=== PATIENT | male | born 1955 | race Caucasian/White ===

== ENCOUNTER 2017-09-27 08:32 | Day surgery (SDC) | payer BC, SELFPAY | END 2017-09-27 10:55 | disposition home or self-care (01) | PROVIDERS: Family Provider Internal Medicine Adolescent Medicine; Visit Provider Internal Medicine Gastroenterology | DX: Z12.11 Encounter for screening for malignant neoplasm of colon (principal); K62.1 Rectal polyp; K64.0 First degree hemorrhoids; Z86.010 Personal history of colon polyps | CPT/HCPCS: 45385; 99152 ==

== ENCOUNTER → 2018-06-04 15:28 | Outpatient (CLI) | payer BC, SELFPAY ==
--- NOTE | 2018-06-04 15:36 | XR_ITS ---
XR chest 2V HISTORY: ITS.REASON: COUGH ORDERING PHYSICIAN: Nicky Sharpe PATIENT AGE: 63 years COMPARISON: None FINDINGS: The cardiomediastinal silhouette and pulmonary vascularity are within normal limits. There is some eventration of the anterior medial aspect of the right hemidiaphragm. Patchy density is present in the right middle lobe suspicious for an area of pneumonia. The left lung is clear. Mild degenerative change thoracic spine. IMPRESSION: Patchy area of pneumonia in the right middle lobe
== END ==
PROVIDERS: PCP Internal Medicine Adolescent Medicine; Visit Provider Nurse Practitioner Family
DX: R05 Cough (principal)
CPT/HCPCS: 71046

== ENCOUNTER → 2018-06-10 14:33 | Outpatient (CLI) | payer BC, SELFPAY ==
[2018-06-10 14:51] LABS: Basophils % 0.5 % (0.1-2.0); Eosinophils # 0.5 K/mm3 (0.0-0.4); Hematocrit 43.6 % (42.0-52.0); Hemoglobin 14.6 g/dL (14.1-18.0); Lymphocytes # 1.1 K/mm3 (0.7-4.5); Lymphocytes % 12.7 K/mm3 (10-50); Mean Corpuscular HGB Conc 33.6 g/dL (31.8-35.4); Mean Corpuscular Hemoglobin 30.9 pg (27.0-31.2); Mean Platelet Volume 6.8 fl (7.4-10.4); Monocytes # 0.6 K/mm3 (0.1-1.0); Monocytes % 6.4 % (1.7-9.3); Neutrophils # 6.4 K/mm3 (1.8-7.8); Neutrophils % 74.5 % (37.0-80.0); Platelet Count 253 K/mm3 (142-424); Red Blood Count 4.73 M/mm3 (4.60-6.20); Red Cell Distribution Width 13.6 % (11.5-17.5); White Blood Count 8.6 K/mm3 (4.8-10.8)
[2018-06-10 16:21] LABS: Anion Gap 13.1 mEq/L (5-15); Blood Urea Nitrogen 13 mg/dL (7-18); Calcium 8.5 mg/dL (8.5-10.1); Carbon Dioxide 29 mmol/L (21.0-32.0); Chloride 107 mmol/L (98-107); Creatinine,Serum 1.14 mg/dL (0.70-1.30); Estimated Glomerular Filt Rate 65 ml/min (>60); GFR (African American) 78 ML/MIN (>60); Glucose 101 mg/dL (74-106); Potassium 4.1 mmoL/L (3.5-5.1); Sodium 145 mmol/L (136-145)
== END ==
PROVIDERS: Family Provider Internal Medicine Adolescent Medicine; PCP Internal Medicine Adolescent Medicine; Visit Provider Surgery
DX: L02.91 Cutaneous abscess, unspecified (principal)
CPT/HCPCS: 36415; 80048; 85025; 93005

== ENCOUNTER → 2018-09-18 14:14 | Outpatient (CLI) | payer BC, SELFPAY ==
--- NOTE | 2018-09-18 14:46 | PC.NURSE ---
Sutures removed from left side of patients face.
[2018-09-18 14:47] VITALS: BP 146/91; PULSE 68; RESP 18; TEMP 36.6; O2SAT 99
== END ==
PROVIDERS: PCP Internal Medicine Adolescent Medicine; Visit Provider Nurse Practitioner Family
DX: L72.3 Sebaceous cyst (principal)

== ENCOUNTER → 2019-03-06 07:03 | Outpatient (CLI) | payer BC, SELFPAY ==
[2019-03-06 07:30] LABS: Basophils % 0.7 % (0.1-2.0); Eosinophils # 0.4 K/mm3 (0.0-0.4); Eosinophils % 7.6 % (0.1-12.0); Hematocrit 42.4 % (42.0-52.0); Lymphocytes # 1.2 K/mm3 (0.7-4.5); Lymphocytes % 26.1 % (10-50); Mean Corpuscular HGB Conc 32.9 g/dL (31.8-35.4); Mean Corpuscular Hemoglobin 29.3 pg (27.0-31.2); Mean Corpuscular Volume 89.1 fl (80-94); Mean Platelet Volume 7.2 fl (7.4-10.4); Monocytes # 0.3 K/mm3 (0.1-1.0); Monocytes % 7.3 % (1.7-9.3); Neutrophils # 2.7 K/mm3 (1.8-7.8); Neutrophils % 58.2 % (37.0-80.0); Platelet Count 171 K/mm3 (142-424); Red Blood Count 4.76 M/mm3 (4.60-6.20); Red Cell Distribution Width 13.2 % (11.5-17.5); White Blood Count 4.7 K/mm3 (4.8-10.8)
[2019-03-06 12:48] LABS: Alanine Aminotransferase 21 U/L (12-78); Albumin Level 3.3 gm/dL (3.4-5.0); Albumin/Globulin Ratio 1.1 (1.1-1.8); Alkaline Phosphatase 95 U/L (46-116); Anion Gap 14.3 mEq/L (5-15); Aspartate Amino Transferase 15 U/L (15-37); Bilirubin,Total 0.7 mg/dL (0.2-1.0); Blood Urea Nitrogen 19 mg/dL (7-18); Carbon Dioxide 26 mmol/L (21.0-32.0); Chloride 107 mmol/L (98-107); Chol/HDL Ratio 6.2 (1-3.5); Cholesterol 137 mg/dL (140-200); Creatinine,Serum 1.12 mg/dL (0.70-1.30); Estimated Glomerular Filt Rate 66 ml/min (>60); GFR (African American) 80 ML/MIN (>60); Globulin 2.9 gm/dl (1.3-3.2); Glucose 94 mg/dL (74-106); HDL Cholesterol 22 mg/dL (27-67); LDL Cholesterol 99 mg/dL (0-130); Potassium 4.3 mmoL/L (3.5-5.1); Prostate Specific Ag, Diagnost 1.66 ng/mL (0.0-4.0); Sodium 143 mmol/L (136-145); Total Protein,Serum 6.2 gm/dL (6.4-8.2); Triglycerides 82 mg/dL (30-200); VLDL Cholesterol 16 mg/dL (0-40)
== END ==
PROVIDERS: Visit Provider Internal Medicine Adolescent Medicine
DX: N40.1 Benign prostatic hyperplasia with lower urinary tract symptoms (principal); E78.5 Hyperlipidemia, unspecified
CPT/HCPCS: 36415; 80053; 80061; 84153; 85025

== ENCOUNTER → 2019-06-19 14:58 | Outpatient (CLI) | payer BC, SELFPAY ==
--- NOTE | 2019-06-19 15:05 | XR_ITS ---
PROCEDURE: XR RIBS LT 2V CLINICAL INDICATION: COSTOCHONDRITIS Mid chest pain when coughing and sneezing COMPARISON: No exams were available for comparison FINDINGS: Nondisplaced fracture involves the anterior aspect of the left 10th rib. No other significant anomalies evident. IMPRESSION: Nondisplaced left 10th rib fracture Dictated by: Alvarez Wagner MD 06/19/2019 17:43 Electronically signed by Alvarez Wagner MD in [place] 06/19/2019 17:43
--- NOTE | 2019-06-19 15:05 | XR_ITS ---
PROCEDURE: XR CHEST 2V CLINICAL HISTORY: COSTOCHONDRITIS Chest pain when coughing and sneezing COMPARISON: CXR2V XR chest 2V from 06/04/2018 XR RIBS LT 2V from 06/19/2019 XR SKULL <4V from 06/19/2019 FINDINGS: The cardiomediastinal silhouette and pulmonary vascularity are within normal limits. In the lower aspect of the right chest there is a new ill-defined nodular density which measures 16 mm not readily apparent on the previous exam. The remaining lungs are clear No acute bony abnormalities. IMPRESSION: 16 mm right lower lobe nodule. Suggest chest CT for more thorough evaluation to determine if this represents a calcified granuloma or a noncalcified nodule. Dictated by: Alvarez Wagner MD 06/19/2019 17:45 Electronically signed by Alvarez Wagner MD in [place] 06/19/2019 17:45
--- NOTE | 2019-06-19 15:05 | XR_ITS ---
Dictated by: Alvarez Wagner MD 06/26/2019 12:14 Electronically signed by Alvarez Wagner MD in [facility] 06/28/2019 10:45
== END ==
PROVIDERS: PCP Internal Medicine Adolescent Medicine; Visit Provider Internal Medicine Adolescent Medicine
DX: M94.0 Chondrocostal junction syndrome [Tietze] (principal)
CPT/HCPCS: 70250; 71046; 71100

== ENCOUNTER → 2019-07-02 12:57 | Outpatient (CLI) | payer BC, SELFPAY ==
[2019-07-02 13:17] LABS: Blood Urea Nitrogen 18 mg/dL (7-18); Creatinine,Serum 1.03 mg/dL (0.70-1.30); Estimated Glomerular Filt Rate 72 ml/min (>60); GFR (African American) 88 ML/MIN (>60)
--- NOTE | 2019-07-02 13:33 | CT_ITS ---
PROCEDURE: CT CHEST WO/W CON CLINCAL INDICATION: LUNG NODULE COMPARISON: XR CHEST 2V from 06/19/2019 TECHNIQUE: IV Contrast: 75ml Optiray 350 Axial images obtained with sagittal and coronal reformats. All CT scans at the facility use one or more dose reduction, viz: automated exposure control, ma/kV adjustment per patient size (including targeted exams where dose is matched to indication, i.e. head), or iterative reconstruction technique. FINDINGS: HEART: Unremarkable. Normal heart size. No significant pericardial effusion. MEDIASTINAL AND HILAR STRUCTURES: There are some fatty benign appearing noncalcified pretracheal lymph nodes. Hilar areas are normal PULMONARY ARTERIES: . pulmonary arteries are unremarkable. AORTA: No acute finding. No thoracic aortic aneurysm or dissection evident. LUNGS: There are some punctate 1 millimeter calcified granulomas in the lung burnett bilaterally. Specifically there is no definite 1.6 centimeter nodule in the lateral right lower lobe or right middle lobe. There is a sclerotic area involving the right anterior costochondral junction which perhaps could account for the finding on the plain film exam. PLEURAL SPACES: No significant effusion. No evidence of pneumothorax. BONY STRUCTURES: No acute bony abnormalities apparent. LYMPH NODES: No enlarged lymph nodes evident. UPPER ABDOMEN: Unremarkable. ADDITIONAL FINDINGS: No other significant abnormalities. IMPRESSION: No suspicious lung nodule. The density on the plain film exam could be related to reactive sclerosis at the anterior right costochondral junction. Dictated by: Hira Childress 07/02/2019 14:12 Electronically signed by Hira Childress in [place] 07/02/2019 14:12
== END ==
PROVIDERS: PCP Internal Medicine Adolescent Medicine; Visit Provider Internal Medicine Adolescent Medicine
DX: R91.1 Solitary pulmonary nodule (principal)
CPT/HCPCS: 36415; 71270; 82565; 84520; Q9967

== ENCOUNTER → 2020-03-30 14:04 | Outpatient (CLI) | payer MEDICARE, BC, SELFPAY ==
--- NOTE | 2020-03-30 | ECG_ITS ---
APPROVED REPORT Exam: Resting ECG HR:61 bpm ECG Measurements Heart Rate 61 AXES WI 198 P 29 QRSd 104 QRS 56 QT 424 T 35 QTc 426 <Conclusion> Normal sinus rhythm Normal ECG Electronically signed by : Ben Prasad, 04/03/2020 14:02:13
[2020-03-30 14:38] LABS: Basophils % 0.4 % (0.1-2.0); Eosinophils # 0.5 K/mm3 (0.0-0.4); Eosinophils % 7.7 % (0.1-12.0); Hematocrit 42.4 % (42.0-52.0); Lymphocytes # 1.2 K/mm3 (0.7-4.5); Lymphocytes % 16.5 % (10-50); Mean Corpuscular HGB Conc 35.3 g/dL (31.8-35.4); Mean Corpuscular Hemoglobin 32.3 pg (27.0-31.2); Mean Corpuscular Volume 91.6 fl (80-94); Mean Platelet Volume 7.8 fl (7.4-10.4); Monocytes # 0.4 K/mm3 (0.1-1.0); Monocytes % 5.2 % (1.7-9.3); Neutrophils # 4.9 K/mm3 (1.8-7.8); Neutrophils % 70.1 % (37.0-80.0); Platelet Count 189 K/mm3 (142-424); Red Blood Count 4.63 M/mm3 (4.60-6.20); Red Cell Distribution Width 13.6 % (11.5-17.5)
[2020-03-30 15:56] LABS: Chloride 107 mmol/L (98-107); Potassium 4.2 mmoL/L (3.5-5.1); Sodium 138 mmol/L (136-145)
[2020-03-30 15:58] LABS: Blood Urea Nitrogen 15 mg/dl (9-20); Estimated Glomerular Filt Rate 67 ml/min (>60); GFR (African American) 81 ML/MIN (>60)
[2020-03-30 15:59] LABS: Alanine Aminotransferase 19 U/L (12-78); Albumin Level 3.9 g/dl (3.5-5.0); Albumin/Globulin Ratio 1.4 (1.1-1.8); Alkaline Phosphatase 89 U/L (38-126); Anion Gap 9.2 mEq/L (5-15); Aspartate Amino Transferase 24 U/L (17-59); Bilirubin,Total 0.5 mg/dl (0.2-1.3); Carbon Dioxide 26 mmol/L (22.0-30.0); Globulin 2.8 g/dL (1.3-3.2); Glucose 93 mg/dl (74-100); Total Protein,Serum 6.7 g/dl (6.3-8.2)
[2020-03-30 16:07] LABS: Coronavirus 19 IgG Antibody Negative (Negative); Coronavirus 19 IgM Antibody Negative (Negative)
== END ==
PROVIDERS: Visit Provider Surgery
DX: L72.3 Sebaceous cyst (principal); Z01.818 Encounter for other preprocedural examination
CPT/HCPCS: 36415; 80053; 85025; 86328; 93005

== ENCOUNTER 2020-03-31 10:07 | Day surgery (SDC) | payer MEDICARE, BC, SELFPAY ==
[2020-03-31] VITALS (9 sets, daily range): BP systolic 121–143; BP diastolic 70–85; PULSE 55–66; RESP 12–18; TEMP 36.4–36.6; O2SAT 94–97; BMI 37.3
--- NOTE | 2020-03-31 12:24 | P.OP_ITS ---
Date of procedure: 03/31/20 Pre-op Diagnosis:: Abscessed sebaceous cyst left upper back Post-op Diagnosis:: Same Procedure performed:: Incision and drainage of abscessed sebaceous cyst from left upper back Surgeon:: Todd Ambrose MD OWNER CONSULTING ENGINEER:: Ignacio Abad Anesthesia: LMA Estimated blood loss (mL): 10 Operative findings:: Abscessed cyst with purulent fluid centrally Operative note:: After informed consent was obtained the patient was taken to the operating room and placed in the supine position. General anesthesia with laryngeal mask airway was achieved. He was transferred to a right lateral decubitus position. His left upper back was prepped and draped in a sterile fashion. After infiltration with local anesthetic an elliptical incision was made around the central portion of the abscessed cyst. The deeper subcutaneous tissue was dissected with a combination of scalpel and electrocautery. The central cavity was entered and fluid was obtained for Gram stain/culture. The underlying tissue was carefully excised and the wound was evacuated. What appeared to be the entirety of the cyst cavity was excised and passed off with the remainder of the specimen for pathologic evaluation. The wound was then packed with moistened Kerlix. Dressings were applied and the patient was transferred to recovery in stable condition after removal of his laryngeal mask airway. Condition: stable Disposition: PACU Specimens:: Fluid for Gram stain/culture Abscessed left upper back cyst Complications:: No immediate
--- NOTE | 2020-03-31 12:33 | P.PN_ITS ---
[facility] Anesthesia Record Part I Intake, IV Amount: 500 Estimated blood loss (mL): 25 Urine output (mL): 0 Blood Pressure: 142/85 SaO2: 95 Pulse Rate: 66 Respiratory Rate: 12 Temperature: 97.6 F Patient is:: Awake, Stable Stable to PACU at:: 12:25
--- NOTE | 2020-03-31 12:33 | HMH.ANESCL ---
[facility] Anesthesia Checklist - Structural Data Admitted From: Home Planned Operative Procedure/s: i/d back cyst Consent for Planned Operative Procedure(s) Verified: Yes - Additional verifications Anesthesia Reactions: No Hx Blood Transfusions: No Blood Transfusion Reaction: No - Airway Assessment C-Spine Mobility Assessed: Yes TMJ Mobility Assessed: Yes Dentition: Poor Dentition - Neurological Assessment Level of Consciousness: Awake, Alert, Appropriate - Anesthesia Plan Anesthesia Risk discussed: Yes Anesthesia Plan: Verified ASA Class: II Anesthesia Type: General [facility] History I have reviewed the patient's past medical history: Yes Medical History: Reports:: Cancer (skin ca) Denies:: Diabetes Mellitus Type 1, Diabetes Mellitus Type 2, Internal Pacemaker, MRSA, Seizures *Have you ever received a pneumonia vaccine?: Yes *Have you received a flu vaccine this season?: Yes Other Medical History: Reports: Other. Denies: Blood Transfusion Reaction Anesthesia experience/problems:: none Laterality Cases: Bilateral: Tonsillectomy Other Surgeries: Yes: Colonoscopy, Other. No: Pacemaker Amputation: Yes (toes) Fractures: Yes - *Social History Educational Level: Completed College Smoking Status: Never smoker Alcohol Intake: never Substance Use Type: denies use *Occupational Status:: employed Housing: house Household Members: spouse *Travel in the last 8 weeks: None Family Hx:: Hypertension
--- NOTE | 2020-03-31 13:20 | PC.NURSE ---
1252-detailed report called to PORTER Portillo 1255-pt transported to post op via stretcher w/andrew rails up and left in care of PORTER Portillo with bed locked in lowest position, vss, pt stable
--- NOTE | 2020-03-31 13:46 | HMH.ANESII ---
[facility] Anesthesia Record Part II Discharge Time: 12:55 Destination: Surgical Day Care (OP Surgery) PACU nurse assessment reviewed?: Yes Patient Condition:: Good Anesthesia Complications:: None Swallowing reflex intact?: Yes Cyanosis?: No Blood Pressure: 121/77 Pulse Rate: 59 Temperature: 97.5 F Mental Status: Alert & Oriented Pain level:: 0 Nausea and/or vomitting:: None Intake, IV Amount: 0
== END 2020-03-31 13:25 | disposition home or self-care (01) ==
LOC: OR 10:10
PROVIDERS: PCP Internal Medicine Adolescent Medicine; Visit Provider Surgery
PROC: (CPT 10061; principal; 2020-03-31 11:30)
DX: L02.212 Cutaneous abscess of back [any part, except buttock and flank] (principal); L72.3 Sebaceous cyst; Z79.899 Other long term (current) drug therapy
CPT/HCPCS: 10061; 87070; 87075; 87077; 87205; 96374; J2405

== ENCOUNTER 2020-05-26 18:53 | Emergency (ER) | payer MEDICARE, BC, SELFPAY ==
[2020-05-26 18:54] VITALS: BP 138/80; PULSE 64; RESP 18; O2SAT 98; BMI 34.0
--- NOTE | 2020-05-26 18:57 | CT_ITS ---
PROCEDURE: CT ANGIO CHEST CLINCIAL INDICATION: pain Blunt trauma with injury and pain, contusion/abrasion or hematoma following injury, chest and back pain following injury, pain on the right side of the breast COMPARISON: No exams were available for comparison TECHNIQUE: IV Contrast: 70ML OPTIRAY 350 Axial images obtained with sagittal and coronal reformats. All CT scans at the facility use one or more dose reduction, viz: automated exposure control, ma/kV adjustment per patient size (including targeted exams where dose is matched to indication, i.e. head), or iterative reconstruction technique. FINDINGS: HEART AND MEDIASTINAL STRUCTURES: No mediastinal or hilar mass or adenopathy. No evidence of aortic aneurysm or dissection or central pulmonary embolus. Normal heart size. No evidence of pericardial effusion. There are few scattered small mediastinal lymph nodes. LUNGS AND PLEURAL SPACES: No lobar consolidation or collapse is evident. There is some minimal nonspecific subpleural nodularity in the posterior rhett thoraces on both sides which is of questionable clinical significance. There is calcified granuloma in the left upper lobe and minimal nodularity noted in the major fissure on the left superiorly at 5 x 2 mm BONY STRUCTURES: Multilevel thoracic spondylosis with mild kyphosis in the lower thoracic spine with minimal wedge contour but no acute fracture apparent. This could be confirmed with MRI if clinically warranted UPPER ABDOMEN: There is a small hiatal hernia with mild nonspecific thickening of the distal esophagus. ADDITIONAL FINDINGS: No other significant abnormalities. IMPRESSION: No acute finding. Please see above for detail regarding other nonacute findings Dictated by: Alvarez Wagner MD 05/27/2020 07:27 Alvarez Wagner MD in [place] 05/27/2020 07:27
--- NOTE | 2020-05-26 18:57 | CT_ITS ---
PROCEDURE: CT ABDOMEN PELVIS W CON CLINICAL INDICATION: pain Blunt trauma with injury and pain, contusion/abrasion or hematoma following injury COMPARISON: CT CT ANGIO CHEST from 05/26/2020 TECHNIQUE: IV Contrast: 75ML OPTIRAY 350 Oral Contrast None Axial images obtained with sagittal and coronal reformats. All CT scans at the facility use one or more dose reduction, viz: automated exposure control, ma/kV adjustment per patient size (including targeted exams where dose is matched to indication, i.e. head), or iterative reconstruction technique. FINDINGS: LOWER THORAX: Small hiatal hernia with mild nonspecific thickening of the distal esophagus ABDOMEN & PELVIS: The liver, gallbladder, adrenal glands, and pancreas have an unremarkable appearance. There is splenomegaly at 16 cm. There is a 13 mm left renal cyst. The kidneys are otherwise unremarkable. No intestinal obstruction or free air. There is a small umbilical hernia which contains fat. No evidence of appendicitis intestinal obstruction free air or diverticulitis. The prostate is slightly prominent at 4.7 cm. No acute bony findings. IMPRESSION: No acute findings Splenomegaly Dictated by: Alvarez Wagner MD 05/27/2020 07:32 Alvarez Wagner MD in [place] 05/27/2020 07:32
--- NOTE | 2020-05-26 18:59 | HMH.EDGENADL ---
ED Disposition Clinical Impression: Contusion, back Qualifiers: Encounter type: initial encounter Disposition: Home, Self-Care Condition on Discharge: Good Additional Instructions: You were seen on an emergency basis. It is very important that you follow up with your primary care provider and/or specialist as we discussed within 2 days. All labs and imaging were obtained and interpreted here to rule out life threatening emergencies, but your final results should be reviewed by your primary doctor at your follow up appointment. Please return to the emergency department if any of your symptoms worsen, or if they do not improve as we discussed. Referrals: Provider,Referral, [Primary Care Provider] - - Critical Care Critical Care Time: No Attestation: On 05/26/20, the high probability of a clinically significant, sudden or life threatening deterioration of the following system(s) required my full and direct attention, intervention and personal management. The time I documented below is in addition to time spent performing reported procedures but includes the following listed in this critical care notation. Medical Decision Making - Medical Records Medical records reviewed: Yes: I reviewed the patient's medical records. - Nawaf Inquiry Pt receiving controlled substance: No Vital Signs: 05/26/20 18:54 05/26/20 19:00 05/26/20 19:30 Pulse Rate [Radial] 64 62 62 Respiratory Rate 18 18 18 Blood Pressure [Right Arm] 138/80 131/70 118/69 Blood Pressure Mean [Right Arm] 99 90 85 Blood Pressure Source [Right Arm] Automatic Cuff Automatic Cuff Automatic Cuff Blood Pressure Position [Right Arm] Sitting Supine Supine 02 Sat by Pulse Oximetry 98 96 98 Oxygen Delivery Method Room Air Room Air Room Air 05/26/20 20:00 05/26/20 20:30 Pulse Rate [Radial] 64 65 Respiratory Rate 17 17 Blood Pressure [Right Arm] 140/78 137/80 Blood Pressure Mean [Right Arm] 98 99 Blood Pressure Source [Right Arm] Automatic Cuff Automatic Cuff Blood Pressure Position [Right Arm] Supine Supine 02 Sat by Pulse Oximetry 95 96 Oxygen Delivery Method Room Air Room Air - Lab Data Lab results reviewed: Yes: I reviewed the patient's lab results. Lab Results 05/26/20 19:10: WBC 6.5, RBC 4.61, Hgb 14.5, Hct 42.5, MCV 92.4, MCH 31.6 H, MCHC 34.2, RDW 13.7, Plt Count 178, MPV 8.2, Neut % (Auto) 75.1, Lymph % (Auto) 14.2, [place] % (Auto) 5.2, Eos % (Auto) 5.1, Baso % (Auto) 0.4, Neut # (Auto) 4.9, Lymph # (Auto) 0.9, [place] # (Auto) 0.3, Eos # (Auto) 0.3, Baso # (Auto) 0.0 05/26/20 19:10: PT 11.2, INR 1.10, APTT 22.3 L 05/26/20 19:10: Sodium 140, Potassium 3.8, Chloride 109 H, Carbon Dioxide 24, Anion Gap 10.8, BUN 22 H, Creatinine 1.10, Estimated Creat Clear 114, Estimated GFR 67, Est GFR ( Amer) 81, Glucose 124 H, Calcium 9.2, Total Bilirubin 0.9, AST 35, ALT 23, Alkaline Phosphatase 80, Total Protein 6.8, Albumin 3.9, Globulin 2.9, Albumin/Globulin Ratio 1.3 Result diagrams: 05/26/20 19:10 05/26/20 19:10 Orders (Tests/Meds): ED MEDICATIONS Discontinued Medications Generic Name Dose Route Start Last Admin Trade Name Freq PRN Reason Stop Dose Admin Ioversol 100 ml 05/26/20 19:46 05/26/20 19:48 Rad-Optiray 350 100ml Vial IV 05/26/20 19:47 100 ml ONCE ONE Administration Protocol Sodium Chloride 40 ml 05/26/20 19:46 05/26/20 19:47 Rad-Ns 50ml Vial IV 05/26/20 19:47 40 ml ONCE ONE Administration Sodium Chloride 10 ml 05/26/20 19:46 05/26/20 19:47 Rad-Saline Flush 10ml Syringe IV 05/26/20 19:47 10 ml ONCE ONE Administration ORDERS Category Date Time Status CT abdomen pelvis w con Stat Cat Scan 05/26/20 18:[address] angio chest Stat Cat Scan 05/26/20 18:57 Taken Medical Decision Narrative: 64-year-old male presenting with back contusion after strike from tree branch. No head strike or loss of consciousness. Nonfocal and ambulating at baseline. No lacerations. CT chest with c
[2020-05-26 19:00] VITALS: BP 131/70; PULSE 62; RESP 18; O2SAT 96
[2020-05-26 19:25] LABS: Basophils % 0.4 % (0.1-2.0); Chloride 109 mmol/L (98-107); Eosinophils # 0.3 K/mm3 (0.0-0.4); Eosinophils % 5.1 % (0.1-12.0); Hematocrit 42.5 % (42.0-52.0); Hemoglobin 14.5 g/dL (14.1-18.0); Lymphocytes # 0.9 K/mm3 (0.7-4.5); Lymphocytes % 14.2 % (10-50); Mean Corpuscular HGB Conc 34.2 g/dL (31.8-35.4); Mean Corpuscular Hemoglobin 31.6 pg (27.0-31.2); Mean Corpuscular Volume 92.4 fl (80-94); Mean Platelet Volume 8.2 fl (7.4-10.4); Monocytes # 0.3 K/mm3 (0.1-1.0); Monocytes % 5.2 % (1.7-9.3); Neutrophils # 4.9 K/mm3 (1.8-7.8); Neutrophils % 75.1 % (37.0-80.0); Platelet Count 178 K/mm3 (142-424); Potassium 3.8 mmoL/L (3.5-5.1); Red Blood Count 4.61 M/mm3 (4.60-6.20); Red Cell Distribution Width 13.7 % (11.5-17.5); Sodium 140 mmol/L (136-145); White Blood Count 6.5 K/mm3 (4.8-10.8)
[2020-05-26 19:28] LABS: Alanine Aminotransferase 23 U/L (12-78); Albumin Level 3.9 g/dl (3.5-5.0); Albumin/Globulin Ratio 1.3 (1.1-1.8); Alkaline Phosphatase 80 U/L (38-126); Anion Gap 10.8 mEq/L (5-15); Aspartate Amino Transferase 35 U/L (17-59); Bilirubin,Total 0.9 mg/dl (0.2-1.3); Blood Urea Nitrogen 22 mg/dl (9-20); Carbon Dioxide 24 mmol/L (22.0-30.0); Creatinine Clearance Estimated 114 mL/min (50-200); Estimated Glomerular Filt Rate 67 ml/min (>60); GFR (African American) 81 ML/MIN (>60); Globulin 2.9 g/dL (1.3-3.2); Total Protein,Serum 6.8 g/dl (6.3-8.2)
[2020-05-26 19:29] LABS: Calcium 9.2 mg/dl (8.4-10.2); Glucose 124 mg/dl (74-100)
[2020-05-26 19:30] VITALS: BP 118/69; PULSE 62; RESP 18; O2SAT 98
[2020-05-26 19:33] LABS: Activated Partial Thrombo Time 22.3 seconds (23.6-34.0); Prothrombin Time 11.2 seconds (9.4-11.8)
[2020-05-26 20:00] VITALS: BP 140/78; PULSE 64; RESP 17; O2SAT 95
[2020-05-26 20:30] VITALS: BP 137/80; PULSE 65; RESP 17; O2SAT 96
[2020-05-26 21:22] VITALS: BP 140/78; PULSE 64; RESP 16; TEMP 37; O2SAT 98
== END 2020-05-26 21:24 | disposition home or self-care (01) ==
PROVIDERS: Emergency Provider Physician Assistant
DX: S20.229A Contusion of unspecified back wall of thorax, initial encounter (principal); W22.8XXA Striking against or struck by other objects, initial encounter; Y92.014 Private driveway to single-family (private) house as the place of occurrence of the external cause
CPT/HCPCS: 71275; 74177; 80053; 85025; 85610; 85730; 99283; Q9967

== ENCOUNTER → 2021-01-03 07:13 | Outpatient (CLI) | payer MEDICARE, BC, SELFPAY ==
[2021-01-03 07:52] LABS: Basophils # 0.1 K/mm3 (0-0.2); Basophils % 0.8 % (0.1-2.0); Eosinophils # 0.3 K/mm3 (0.0-0.4); Eosinophils % 5.9 % (0.1-12.0); Hematocrit 44.8 % (42.0-52.0); Hemoglobin 14.7 g/dL (14.1-18.0); Lymphocytes # 1.2 K/mm3 (0.7-4.5); Lymphocytes % 21.2 % (10-50); Mean Corpuscular HGB Conc 32.8 g/dL (31.8-35.4); Mean Corpuscular Hemoglobin 30.7 pg (27.0-31.2); Mean Corpuscular Volume 93.5 fl (80-94); Mean Platelet Volume 7.4 fl (7.4-10.4); Monocytes # 0.4 K/mm3 (0.1-1.0); Monocytes % 6.8 % (1.7-9.3); Neutrophils # 3.8 K/mm3 (1.8-7.8); Neutrophils % 65.3 % (37.0-80.0); Platelet Count 179 K/mm3 (142-424); Red Blood Count 4.79 M/mm3 (4.60-6.20); Red Cell Distribution Width 13.5 % (11.5-17.5); White Blood Count 5.8 K/mm3 (4.8-10.8)
[2021-01-03 08:00] LABS: Hemoglobin A1C 5.7 % (4.0-6.0)
[2021-01-03 08:03] LABS: Alanine Aminotransferase 18 U/L (12-78); Albumin Level 3.8 g/dl (3.5-5.0); Albumin/Globulin Ratio 1.5 (1.1-1.8); Alkaline Phosphatase 92 U/L (38-126); Anion Gap 11.4 mEq/L (5-15); Aspartate Amino Transferase 25 U/L (17-59); Bilirubin,Total 0.6 mg/dl (0.2-1.3); Blood Urea Nitrogen 18 mg/dl (9-20); Calcium 8.7 mg/dl (8.4-10.2); Carbon Dioxide 26 mmol/L (22.0-30.0); Chloride 109 mmol/L (98-107); Chol/HDL Ratio 5.8 (1-3.5); Cholesterol 140 mg/dl (140-200); Estimated Glomerular Filt Rate 67 ml/min (>60); GFR (African American) 81 ML/MIN (>60); Globulin 2.6 g/dL (1.3-3.2); Glucose 123 mg/dl (74-100); HDL Cholesterol 24 mg/dl (40-60); Potassium 4.4 mmoL/L (3.5-5.1); Sodium 142 mmol/L (136-145); Total Protein,Serum 6.4 g/dl (6.3-8.2); Triglycerides 173 mg/dl (30-150); VLDL Cholesterol 35 mg/dL (0-40)
[2021-01-03 08:14] LABS: Direct LDL Cholesterol 87.41 mg/dL (100-129)
== END ==
PROVIDERS: Visit Provider Internal Medicine Adolescent Medicine
DX: E78.5 Hyperlipidemia, unspecified (principal); Z12.5 Encounter for screening for malignant neoplasm of prostate; Z79.899 Other long term (current) drug therapy
CPT/HCPCS: 36415; 80053; 80061; 83036; 85025; G0103

== ENCOUNTER → 2021-01-27 09:38 | Outpatient (CLI) | payer MEDICARE, BC, SELFPAY | PROVIDERS: PCP Internal Medicine Adolescent Medicine; Visit Provider Internal Medicine Adolescent Medicine | DX: R05 Cough (principal) | CPT/HCPCS: 94060; 94618; 94726; 94729 ==

== ENCOUNTER → 2021-02-28 08:38 | Outpatient (POV) | payer MEDICARE, BC, SELFPAY | PROVIDERS: Visit Provider Dermatology | DX: Z01.812 Encounter for preprocedural laboratory examination (principal); Z20.822 Contact with and (suspected) exposure to COVID-19; L72.3 Sebaceous cyst | CPT/HCPCS: U0003 ==

== ENCOUNTER 2021-03-03 10:01 | Day surgery (SDC) | payer MEDICARE, BC, SELFPAY ==
[2021-02-28 10:45] VITALS: BMI 37.3
[2021-03-03] VITALS (9 sets, daily range): BP systolic 134–153; BP diastolic 75–100; PULSE 55–64; RESP 16–22; TEMP 36.1–36.6; O2SAT 96–100
--- NOTE | 2021-03-03 10:25 | P.PN_ITS ---
[facility] Anesthesia Checklist - Patient Identification Patient Identification: Arm Band - Structural Data Admitted From: Home Planned Operative Procedure/s: Excision lesion/neopplasm lower back Consent for Planned Operative Procedure(s) Verified: Yes - NPO Status Verified Time NPO: 00:00 - Additional verifications Anesthesia Reactions: No Hx Blood Transfusions: No Blood Transfusion Reaction: No - Airway Assessment C-Spine Mobility Assessed: Yes TMJ Mobility Assessed: Yes Dentition: Good Dentition - Neurological Assessment Level of Consciousness: Awake Hx Seizures: No Numbness or tingling in extremities: No - Anesthesia Plan Anesthesia Risk discussed: Yes Anesthesia Plan: Verified ASA Class: II Anesthesia Type: General [facility] History I have reviewed the patient's past medical history: Yes Medical History: Reports:: Cancer (skin) Denies:: Diabetes Mellitus Type 1, Diabetes Mellitus Type 2, Internal Pacemaker, MRSA, Seizures *Have you ever received a pneumonia vaccine?: Yes *Have you received a flu vaccine this season?: Yes Other Medical History: Reports: Other. Denies: Blood Transfusion Reaction Anesthesia experience/problems:: None Laterality Cases: Bilateral: Tonsillectomy, Other Other Surgeries: Yes: Colonoscopy, Other. No: Pacemaker Amputation: Yes (toes) Fractures: Yes - *Social History Last grade of school completed: Some college Smoking Status: Never smoker Alcohol Intake: never Substance Use Type: denies use *Occupational Status:: employed Housing: house Household Members: spouse *Travel in the last 8 weeks: None Family Hx:: No significant family history
--- NOTE | 2021-03-03 11:28 | P.OP_ITS ---
Date of procedure: 03/03/21 Pre-op Diagnosis:: Abscessed right lower back sebaceous cyst Post-op Diagnosis:: Same Procedure performed:: Incision and drainage/debridement of abscessed sebaceous cyst along right lower back Surgeon:: Todd Ambrose MD Anesthesia: LMA Estimated blood loss (mL): 10 Operative findings:: Complex abscessed cyst with multiple pockets of purulence Operative note:: After informed consent was obtained the patient was taken to the operating room and placed in the supine position. General anesthesia with laryngeal mask ai rway was achieved. He was transferred to the left lateral decubitus position. The right lower back was prepped and draped in a sterile fashion. After infiltration local anesthetic an elliptical incision was made around the central portion of the lesion. Multiple pockets of purulence were encountered throughout the subcutaneous tissue. Dissection with electrocautery was utilized to remove the necrotic/abscessed tissue. Electrocautery was utilized to achieve hemostasis. The wound was packed open with moistened Kerlix. The Curlex was infiltrated with 1% lidocaine. Dressings were applied and the patient was transferred to recovery in stable condition. Condition: stable Disposition: PACU Specimens:: Abscessed right lower back cyst Complications:: No immediate
--- NOTE | 2021-03-03 11:36 | P.PN_ITS ---
[facility] Anesthesia Record Part I Intake, IV Amount: 200 Estimated blood loss (mL): 0 Urine output (mL): 0 Blood Pressure: 141/100 SaO2: 96 Pulse Rate: 59 Respiratory Rate: 22 Temperature: 97 F Patient is:: Drowsy Stable to PACU at:: 11:34
--- NOTE | 2021-03-03 14:36 | P.PN_ITS ---
[facility] Anesthesia Record Part II Discharge Time: 11:54 Destination: Surgical Day Care (OP Surgery) PACU nurse assessment reviewed?: Yes Patient Condition:: Good Anesthesia Complications:: None Swallowing reflex intact?: Yes Cyanosis?: No Blood Pressure: 135/75 Pulse Rate: 55 Temperature: 97.3 F Mental Status: Alert & Oriented Pain level:: 0 Nausea and/or vomitting:: None Intake, IV Amount: 0
== END 2021-03-03 12:30 | disposition home or self-care (01) ==
LOC: OR 10:01
PROVIDERS: PCP Internal Medicine Adolescent Medicine; Visit Provider Surgery
DX: L02.212 Cutaneous abscess of back [any part, except buttock and flank] (principal); Z85.828 Personal history of other malignant neoplasm of skin
CPT/HCPCS: 10061; 88304; 96374

== ENCOUNTER 2021-03-20 10:45 | Emergency (ER) | payer MEDICARE, BC, SELFPAY ==
[2021-03-20 12:15] VITALS: BP 138/88; PULSE 70; RESP 19; TEMP 36.6; O2SAT 98; BMI 38.0
--- NOTE | 2021-03-20 13:07 | HMH.EDUTC ---
[facility] Disposition Clinical Impression: Tick bite Qualifiers: Encounter type: initial encounter Qualified Code(s): W57.XXXA - Bitten or stung by nonvenomous insect and other nonvenomous arthropods, initial encounter Disposition: Home, Self-Care Condition on Discharge: Good Instructions: How to Remove a Tick, Doxycycline, Protect Yourself from Tickborne Illnesses Additional Instructions: Keep area clean and dry Watch area for worsening of rash or spreading Follow up with Family Doctor if any worsening of symptoms Return if needed Straight to ER if any life threatening symptoms Prescriptions: Doxycycline Hyclate [Doxycycline 100mg Capsule] 100 mg PO Q12 10 Days #20 cap Transmission Status: Pending to [id number] Referrals: Kaiden Gonzales MD [Primary Care Provider] - As needed Time of Disposition: 13:25 Medical Decision Making - Nawaf Inquiry Pt receiving controlled substance: No Nawaf was queried for this patient: No Vital Signs: 03/20/21 12:15 Temperature 97.9 F Temperature Source Oral Pulse Rate [Right Brachial] 70 Respiratory Rate 19 Blood Pressure [Right Arm] 138/88 Blood Pressure Mean [Right Arm] 104 Blood Pressure Source [Right Arm] Automatic Cuff Blood Pressure Position [Right Arm] Sitting 02 Sat by Pulse Oximetry 98 Oxygen Delivery Method Room Air [facility] HPI - General Stated complaint: tick in belly button Time Seen by Provider: 03/20/21 13:07 Mode of Arrival: Ambulatory Source of Information: Patient Limitations: No Limitations Description of Symptoms (Recalled from Triage Doc. by RN): PATIENT C/O TICK IN NAVAL THAT HE NOTICED THIS MORNING HEENT Symptoms (Recalled from RN notes): No Resp Symptoms (Recalled from RN notes): No Skin Symptoms (Recalled from RN notes): No MS Symptoms (Recalled from RN notes): No Functional Status (Recalled from RN notes): WNL - History of Present Illness Provider Complaint: Patient states that he noticed a large cream colored tick inside his navel this morning and noticed it was looking red and like he had a rash coming out of naval area State that he was concerned and was scared to removed the tick so he came in to get checked - Related Data Previous Rx's Medication Instructions Recorded Doxycycline Hyclate [Doxycycline 100 mg PO Q12 10 Days #20 cap 03/20/21 100mg Capsule] Allergies Allergy/AdvReac Type Severity Reaction Status Date / Time No Known Allergies Allergy Verified 03/15/21 14:41 - Worker's Comp Is this a Worker's Comp case?: No [facility] History - Hepatitis A Screen Drug use history?: No High risk sexual behaviors?: No History of sexually transmitted infection?: No Currently employed?: No Childcare worker?: No Do you have indoor plumbing?: Yes Do you have electricity?: Yes Attestation statement:: This patient has been screened for Hepatitis A risk factors. I have reviewed the patient's past medical history: Yes Medical History: Reports:: Cancer (SKIN) Denies:: Diabetes Mellitus Type 1, Diabetes Mellitus Type 2, Internal Pacemaker, MRSA, Seizures Other Medical History: Reports: Other. Denies: Blood Transfusion Reaction Laterality Cases: Bilateral: Tonsillectomy, Other Other Surgeries: Yes: Colonoscopy, Other. No: Pacemaker Amputation: Yes (toes) Fractures: Yes Comment: excision cyst on back - Social History Smoking Status: Never smoker Alcohol Intake: never Substance Use Type: denies use Occupational Status: other Housing: house Household Members: spouse Family Hx:: No significant family history ROS Obtained: Yes All systems reviewed & no additional complaints, Yes Systems reviewed as appropriate & no additional complaints - Constitutional Constitutional: Reports system reviewed and no additional complaints, except as docu, Denies body ache, Denies chills, Denies fever(s) - Cardiovascular Cardiovascular: Reports system reviewed and no additional complaints, except as docu - Respiratory Respir
[2021-03-20 13:25] VITALS: BP 138/88; PULSE 70; RESP 19; TEMP 36.6; O2SAT 98
== END 2021-03-20 13:30 | disposition home or self-care (01) ==
PROVIDERS: Emergency Provider Nurse Practitioner; PCP Internal Medicine Adolescent Medicine
DX: S30.861A Insect bite (nonvenomous) of abdominal wall, initial encounter (principal); W57.XXXA Bitten or stung by nonvenomous insect and other nonvenomous arthropods, initial encounter
CPT/HCPCS: 99202; G0463

== ENCOUNTER → 2021-11-21 11:09 | Outpatient (CLI) | payer MEDICARE, SELFPAY | PROVIDERS: Visit Provider Surgery | DX: Z01.812 Encounter for preprocedural laboratory examination (principal); Z11.52 Encounter for screening for COVID-19; L72.3 Sebaceous cyst | CPT/HCPCS: C9803; U0003; U0005 ==

== ENCOUNTER 2021-11-23 08:33 | Day surgery (SDC) | payer MEDICARE, SELFPAY ==
[2021-11-20 10:17] VITALS: BMI 37.3
[2021-11-23 08:51] VITALS: BP 142/79; PULSE 62; RESP 18; TEMP 36.7; O2SAT 97
--- NOTE | 2021-11-23 09:05 | SUR.PREOP ---
Dr. Ambrose cancelled procedure D/T unable to find cyst. Pt pleasant and cooperative and verbalized understanding of all instructions. To call office if have further problems.
== END 2021-11-23 09:06 | disposition home or self-care (01) ==
LOC: OUTP 08:35
PROVIDERS: PCP Internal Medicine Adolescent Medicine; Visit Provider Surgery
DX: L72.3 Sebaceous cyst (principal); Z53.8 Procedure and treatment not carried out for other reasons

== ENCOUNTER 2022-04-17 10:31 | Day surgery (SDC) | payer MEDICARE, SELFPAY ==
[2022-04-17] VITALS (9 sets, daily range): BP systolic 111–131; BP diastolic 68–91; PULSE 55–62; RESP 12–19; TEMP 36.4–36.6; O2SAT 95–99; BMI 38.0
[2022-04-17 10:39] LABS: Coronavirus 19, PCR Not Detected (NotDetected); Influenza A, PCR Not Detected (NotDetected); Influenza B, PCR Not Detected (NotDetected)
[2022-04-17 11:47] LABS: Basophils # 0.1 K/mm3 (0-0.2); Basophils % 0.7 % (0.1-2.0); Eosinophils # 0.4 K/mm3 (0.0-0.4); Eosinophils % 5.4 % (0.1-12.0); Hematocrit 44.5 % (42.0-52.0); Hemoglobin 15.3 g/dL (14.1-18.0); Lymphocytes # 1.4 K/mm3 (0.7-4.5); Lymphocytes % 18.2 % (10-50); Mean Corpuscular HGB Conc 34.3 g/dL (31.8-35.4); Mean Corpuscular Hemoglobin 31.6 pg (27.0-31.2); Mean Corpuscular Volume 92.2 fl (80-94); Mean Platelet Volume 7.2 fl (7.4-10.4); Monocytes # 0.5 K/mm3 (0.1-1.0); Monocytes % 6.8 % (1.7-9.3); Neutrophils # 5.1 K/mm3 (1.8-7.8); Neutrophils % 68.9 % (37.0-80.0); Platelet Count 199 K/mm3 (142-424); Red Blood Count 4.83 M/mm3 (4.60-6.20); Red Cell Distribution Width 13.2 % (11.5-17.5); White Blood Count 7.4 K/mm3 (4.8-10.8)
[2022-04-17 11:50] LABS: Chloride 108 mmol/L (98-107)
[2022-04-17 11:51] LABS: Potassium 4.4 mmoL/L (3.5-5.1); Sodium 138 mmol/L (136-145)
[2022-04-17 11:54] LABS: Anion Gap 9.4 mEq/L (5-15); Blood Urea Nitrogen 13 mg/dl (9-20); Carbon Dioxide 25 mmol/L (22.0-30.0); Creatinine Clearance Estimated 129 mL/min (50-200); Estimated Glomerular Filt Rate 75 ml/min (>60); GFR (African American) 90 ML/MIN (>60); Glucose 127 mg/dl (74-100)
--- NOTE | 2022-04-17 13:43 | P.PN_ITS ---
[facility] Anesthesia Checklist - Patient Identification Patient Identification: Arm Band - Structural Data Admitted From: Home Planned Operative Procedure/s: I&D Left Lower Back Abscess Consent for Planned Operative Procedure(s) Verified: Yes Verified Documents: Surgical Consent, History and Physical - NPO Status Verified Time NPO: 00:00 - Additional verifications Anesthesia Reactions: No Hx Blood Transfusions: No Blood Transfusion Reaction: No - Airway Assessment C-Spine Mobility Assessed: Yes (mp2) TMJ Mobility Assessed: Yes Dentition: Good Dentition - Neurological Assessment Level of Consciousness: Awake, Alert - Anesthesia Plan Anesthesia Risk discussed: Yes Anesthesia Plan: Verified ASA Class: II Anesthesia Type: General [facility] History I have reviewed the patient's past medical history: Yes Medical History: Denies:: Cancer, Diabetes Mellitus Type 1, Diabetes Mellitus Type 2, Internal Pacemaker, MRSA, Seizures *Have you ever received a pneumonia vaccine?: Yes *Have you received a flu vaccine this season?: Yes Other Medical History: Reports: Other. Denies: Blood Transfusion Reaction Anesthesia experience/problems:: nac Laterality Cases: Bilateral: Tonsillectomy, Other Other Surgeries: Yes: Colonoscopy, Other. No: Pacemaker Amputation: Yes (toes) Fractures: Yes - *Social History Last grade of school completed: Some college Smoking Status: Never smoker Alcohol Intake: never Substance Use Type: denies use *Occupational Status:: employed Housing: house Household Members: spouse *Travel in the last 8 weeks: None Family Hx:: No significant family history
--- NOTE | 2022-04-17 13:52 | HMH.OPNOTE ---
Date of procedure: 04/17/22 Pre-op Diagnosis:: Left lower back sebaceous cyst with abscess Post-op Diagnosis:: Same Procedure performed:: Incision and drainage/debridement of abscessed sebaceous cyst Surgeon:: Todd Ambrose MD Anesthesia: LMA Estimated blood loss (mL): 15 Operative findings:: Abscessed cyst with focal induration Operative note:: After informed consent was obtained the patient was taken to the operating room and placed in the supine position. General anesthesia with laryngeal mask airway was achieved. He was transferred to the right lateral decubitus position. His left lower back was prepped and draped in a sterile fashion. Central portion of the abscessed cyst was excised with electrocautery. Dissection was taken through skin and into the deep subcutaneous tissue. The entire cavity was debrided and passed off for pathologic evaluation after fluid was obtained for gram stain/culture. Multiple microabscesses confirmed. The cavity was thoroughly evacuated. It was packed with Kerlix and then infiltrated with 1% lidocaine. Dressings were applied and the patient was transferred to recovery in stable condition. Condition: stable Disposition: PACU Specimens:: Fluid for gram stain/culture Abscessed left lower back cyst Complications:: No immediate
--- NOTE | 2022-04-17 14:02 | P.PN_ITS ---
[facility] Anesthesia Record Part I Intake, IV Amount: 400 Estimated blood loss (mL): 5 Urine output (mL): 0 Blood Pressure: 113/72 SaO2: 97 Pulse Rate: 57 Respiratory Rate: 16 Temperature: 97.8 F Patient is:: Drowsy, Stable Stable to PACU at:: 13:55
--- NOTE | 2022-04-17 16:23 | HMH.ANESII ---
[facility] Anesthesia Record Part II Discharge Time: 14:15 Destination: Surgical Day Care (OP Surgery) PACU nurse assessment reviewed?: Yes Patient Condition:: Good Anesthesia Complications:: None Swallowing reflex intact?: Yes Cyanosis?: No Blood Pressure: 123/71 Pulse Rate: 58 Temperature: 97.8 F Mental Status: Alert & Oriented Pain level:: 0 Nausea and/or vomitting:: None Intake, IV Amount: 0
== END 2022-04-17 14:52 | disposition home or self-care (01) ==
PROVIDERS: PCP Internal Medicine Adolescent Medicine; Visit Provider Surgery
DX: L02.91 Cutaneous abscess, unspecified (principal); S20.229A Contusion of unspecified back wall of thorax, initial encounter; L72.3 Sebaceous cyst
CPT/HCPCS: 10061; 36415; 80048; 85025; 87070; 87075; 87205; 88173; 96374; C9803; J2405; U0003; U0005

== ENCOUNTER → 2022-06-25 23:23 | Outpatient (CLI) | payer MEDICARE, SELFPAY ==
[2022-06-25 23:38] LABS: Coronavirus 19, PCR Not Detected (NotDetected); Influenza A, PCR Not Detected (NotDetected); Influenza B, PCR Not Detected (NotDetected)
== END ==
PROVIDERS: PCP Internal Medicine Adolescent Medicine; Visit Provider Emergency Medicine
DX: Z20.822 Contact with and (suspected) exposure to COVID-19 (principal)
CPT/HCPCS: C9803; U0003; U0005

== ENCOUNTER → 2022-07-07 10:07 | Outpatient (CLI) | payer MEDICARE, SELFPAY | PROVIDERS: PCP Internal Medicine Adolescent Medicine; Visit Provider Surgery | DX: U07.1 COVID-19 (principal) | CPT/HCPCS: C9803; U0003; U0005 ==

== ENCOUNTER 2022-07-12 09:22 | Emergency (ER) | payer MEDICARE, SELFPAY ==
[2022-07-12 09:30] VITALS: BP 123/79; PULSE 78; RESP 20; TEMP 36.5; O2SAT 94; BMI 37.5
[2022-07-12 09:56] VITALS: BP 123/79; PULSE 78; RESP 20; TEMP 36.5; O2SAT 94
--- NOTE | 2022-07-12 10:05 | EXP.UTC ---
Discharge Plan Disposition Patient Disposition: Home, Self-Care Condition: Good Prescriptions Prescriptions: No Action peg 3350-electrolytes [Golytely] 236-22.74-6.74 -5.86 gram recon soln 240 ml PO Q10M Qty: 4000 0RF Rx Instructions: until fecal effluent is clear Referrals Follow up/Referrals: Kaiden Gonzales MD [Primary Care Provider] - See instructions Activity Restrictions/Add. Instructions Additional Instructions/Restrictions: Drink plenty of fluids. Take tylenol or ibuprofen for pain or fever. Follow up with your regular doctor. GO TO THE ER FOR ANY WORSENING SYMPTOMS Clinical Impressions Clinical Impression: COVID-19 Instructions Patient Instructions: Preventing the Spread of Coronavirus Discharge Instructions Discharge ED Provider: German Brock [facility] General Stated complaint: Covid+, retest Mode of Arrival: Ambulatory Source of Information: Patient Limitations: No Limitations Time Seen by Provider: 07/12/22 10:05 Description of Symptoms (Recalled from Triage Doc. by RN): PATIENT REPORTS TESTING POSITIVE FOR COVID ON 07/07/22 AND IS REQUESTING TO BE RE-TESTED HEENT Symptoms (Recalled from RN notes): No Resp Symptoms (Recalled from RN notes): No Skin Symptoms (Recalled from RN notes): No MS Symptoms (Recalled from RN notes): No Functional Status (Recalled from RN notes): WNL History of Present Illness Provider Complaint: He is here to be retested for covid-19. HE tested positive on 07/07. He states that he feels fine and has not ran a fever at all. He is afraid he is contagious is the reason he wants to be retested. Related Data Previous Rx's Medication Instructions Recorded peg 3350-electrolytes 236 240 ml PO Q10M #4,000 mL 06/11/22 gram-22.74 gram-6.74 gram-5.86 gram solution (Golytely) Allergies Allergy/AdvReac Type Severity Reaction Status Date / Time No Known Allergies Allergy Verified 05/09/22 13:32 Worker's Comp Is this a Worker's Comp case?: No [facility] Medical History (Updated 07/12/22 @ 10:11 by German Brock APRN) Amputation at midfoot No significant past medical history Surgical History Hx of removal of cyst Family History (Updated 07/05/22 @ 12:54 by Major Jernigan RN) Other No significant family history Social History (Updated 07/12/22 @ 09:43 by Yadira Brothers RN) Smoking Status: Never smoker second hand exposure: No alcohol intake: never substance use type: denies use current occupational status: employed Travel in the last 8 weeks: None household members: spouse housing: house current occupation: [employer] current occupational exposures/hazards: No caffeine: Yes ROS Obtained: Yes All systems reviewed & no additional complaints except as documented Constitutional Constitutional: Denies chills and Denies fever(s) Eyes Eyes: Denies eye discharge ENT Ears, Nose, Mouth, and Throat: Denies dizziness, Denies otalgia and Denies sore throat Cardiovascular Cardiovascular: Denies chest pain Respiratory Respiratory: Denies shortness of breath, Denies chest congestion, Denies cough, Denies stridor and Denies wheezing Gastrointestinal Gastrointestingal: Denies nausea or vomiting Musculoskeletal Musculoskeletal: Reports system reviewed and no additional complaints, except as documented and Denies arthralgias Integumentary/Breasts Skin/Breast: Denies rash Neurologic Neurologic: Denies dizziness and Denies paresthesias Allergic/Immunologic Allergic/Immunologic: Denies wheezing Physical Exam General General appearance: alert and in no apparent distress Head Head exam: atraumatic, normocephalic and normal inspection Eye Eye exam: Present normal appearance, PERRL and EOMI ENT ENT exam: Present normal exam, normal oropharynx, mucous membranes moist, TM's normal bilaterally and normal external ear exam Neck Neck exam: Present normal inspecti
== END 2022-07-12 10:16 | disposition home or self-care (01) ==
PROVIDERS: Emergency Provider Nurse Practitioner Family; PCP Internal Medicine Adolescent Medicine
DX: U07.1 COVID-19 (principal)
CPT/HCPCS: 99212; G0463

== ENCOUNTER 2022-07-31 10:30 | Day surgery (SDC) | payer MEDICARE, SELFPAY ==
[2022-07-05 12:54] VITALS: BMI 36.3
[2022-07-31 10:54] VITALS: BP 110/72; PULSE 59; RESP 18; TEMP 36.3; O2SAT 98
--- NOTE | 2022-07-31 11:02 | SUR.PREOP ---
PATIENT PROGRESS NUMBER GIVEN TO PT'S DTR, OBDULIA, VERBALIZED UNDERSTANDING OF SYSTEM.
--- NOTE | 2022-07-31 12:12 | P.PN_ITS ---
[facility] Medical History (Updated 07/12/22 @ 10:11 by German Brock APRN) Amputation at midfoot No significant past medical history Surgical History Hx of removal of cyst Family History (Updated 07/05/22 @ 12:54 by Major Jernigan RN) Other No significant family history Social History (Updated 07/12/22 @ 09:43 by Yadira Brothers RN) Smoking Status: Never smoker second hand exposure: No alcohol intake: never substance use type: denies use current occupational status: employed Travel in the last 8 weeks: None household members: spouse housing: house current occupation: [employer] current occupational exposures/hazards: No caffeine: Yes [facility] Anesthesia Checklist Patient Identification Patient Identification: Arm Band Structural Data Admitted From: Home Planned Operative Procedure/s: colonoscopy Consent for Planned Operative Procedure(s) Verified: Yes Verified Documents: Surgical Consent and History and Physical NPO Status Verified Time NPO: 00:00 Additional verifications Anesthesia Reactions: No Hx Blood Transfusions: No Blood Transfusion Reaction: No Airway Assessment C-Spine Mobility Assessed: Yes TMJ Mobility Assessed: Yes Dentition: Good Dentition Neurological Assessment Level of Consciousness: Awake and Alert Anesthesia Plan Anesthesia Risk discussed: Yes Anesthesia Plan: Verified ASA Class: II Anesthesia Type: MAC
[2022-07-31 12:15] VITALS: O2SAT 97
--- NOTE | 2022-07-31 12:51 | HMH.SCOPE ---
Procedure: Date: 07/31/22 Patient Date of :: 1955 Procedure Performed:: Colonoscopy with polypectomy Indications:: Screening Performing Provider:: Todd Ambrose MD Referring Provider:: . Sedation:: Monitored anesthesia care Procedure:: After informed consent was obtained the patient was taken to the endoscopy suite. Sedation ensued after the patient was transferred to the left lateral decubitus position. Pulse, blood pressure, and oxygen saturation were monitored throughout the procedure. Digital rectal exam revealed no significant abnormality. The colonoscope was placed in position. The entire colon was evaluated. The colonoscope was carefully removed and the patient was transferred to recovery in stable condition. Please see findings and specimens below for detail. Findings:: Bowel preparation moderate Small deep smooth nodularity along left lateral anal canal consistent with early or resolving hemorrhoidal thrombosis Hemorrhoidal tags/cushions Somewhat enlarged but smooth prostate Significant spasticity, tortuosity, and lack of relaxation Complex lobulated polyps (see specimens) Specimens:: Complex lobulated polyp at 70 cm (cold snare) Lobulated polyp at 10 cm (cold snare) Recommendations:: Timing of repeat colonoscopy is pending pathology but likely be between 2-3 years secondary to moderate prep, tortuosity, spasticity, and lack of relaxation. Complications:: No immediate Estimated blood obtained (mL): 1
[2022-07-31 12:59] VITALS: BP 117/59; PULSE 78; RESP 16; TEMP 36.7; O2SAT 96
[2022-07-31 13:09] VITALS: BP 116/58; PULSE 71; RESP 16; O2SAT 95
[2022-07-31 13:19] VITALS: BP 105/76; PULSE 72; RESP 16; O2SAT 96
[2022-07-31 13:29] VITALS: BP 109/65; PULSE 71; RESP 16; TEMP 36.7; O2SAT 98
== END 2022-07-31 13:29 | disposition home or self-care (01) ==
PROVIDERS: PCP Internal Medicine Adolescent Medicine; Visit Provider Surgery
PROC: 0DJD8ZZ Inspection of Lower Intestinal Tract, Via Natural or Artificial Opening Endoscopic (ICD-10-PCS; principal; 2022-07-31 12:30)
DX: Z12.11 Encounter for screening for malignant neoplasm of colon (principal); K63.5 Polyp of colon
CPT/HCPCS: 45385; 88305

== ENCOUNTER 2023-03-25 16:32 | Emergency (ER) | payer MEDICARE, OTHER, SELFPAY ==
[2023-03-25] VITALS (8 sets, daily range): BP systolic 118–143; BP diastolic 50–76; PULSE 85–103; RESP 16–20; TEMP 36.7–37.6; O2SAT 94–97; BMI 37.3
--- NOTE | 2023-03-25 16:58 | XR_ITS ---
PROCEDURE INFORMATION: Exam: XR Chest Exam date and time: 03/25/2023 5:07 PM Age: 67 years old Clinical indication: Shortness of breath; Additional info: SOA TECHNIQUE: Imaging protocol: Radiologic exam of the chest. Views: 1 view. COMPARISON: CT CHEST WO/W CON 07/02/2019 1:54 PM FINDINGS: Lungs: Focal eventration of the right anteromedial hemidiaphragm. Minimal bibasilar atelectasis or scarring. Pleural spaces: Unremarkable. No pleural effusion. No pneumothorax. Heart/Mediastinum: Normal. Vasculature: Atherosclerotic vascular disease. Bones/joints: Multilevel thoracic spine degenerative disc space narrowing and osteophyte formation. IMPRESSION: No acute cardiopulmonary abnormality.
--- NOTE | 2023-03-25 17:06 | HMH.EDGENADL ---
Discharge Plan Disposition Patient Disposition: Home, Self-Care Prescriptions Prescriptions: New doxycycline monohydrate 100 mg capsule 100 mg PO BID 7 Days Qty: 14 0RF [place]usslin 10-28-388 mg/5 mL liquid 5 ml PO QID PRN (Reason: cough) Qty: 474 0RF cephalexin 500 mg capsule 500 mg PO Q6H 7 Days Qty: 28 0RF No Action peg 3350-electrolytes [Golytely] 236-22.74-6.74 -5.86 gram recon soln 240 ml PO Q10M Qty: 4000 0RF Rx Instructions: until fecal effluent is clear sodium,potassium,mag sulfates [Suprep Bowel Prep Kit] 17.5-3.13-1.6 gram recon soln See Rx Instructions PO .COMPLEX Qty: 354 0RF Rx Instructions: DILUTE; drink full amount early evening before AND next morning at least 2 hr before procedure; follow w 960 mL water PO Referrals Follow up/Referrals: Kaiden Gonzales MD [Primary Care Provider] - See instructions Activity Restrictions/Add. Instructions Additional Instructions/Restrictions: Return for worsening severity difficulty breathing or any other concerns within the next 8 hours otherwise follow-up with your primary care physician within the next 2 days Clinical Impressions Clinical Impression: Cellulitis Instructions Patient Instructions: DI for Skin Abscess Discharge ED Provider: Ajit Desai General Adult HPI General Chief complaint: Skin/Abscess/Foreign Body Stated complaint: SOA, body aches, RT toes amp ,leg is red Time Seen by Provider: 03/25/23 16:40 Mode of Arrival: Ambulatory Source of Information: Patient and Spouse Limitations: No Limitations Description of Symptoms (Recalled from ER Triage Doc. by RN): 67 yo M presents to ED with redness, swelling, warmth to right lower leg. pt also reports shortness of air that began yesterday. pt had amputation on right and left feet approx. 7 years ago related to a work accident. non productive cough ongoing for 6 weeks. did covid test today and it was negative. History of Present Illness HPI narrative: 67-year-old male presents with difficulty breathing and redness to right lower extremity. The redness is in his mid right lower extremity and began today. He has subjective fever. He has had 6 months of cough and difficulty breathing. No coughing up blood no prior blood clots. His only medical history is amputation of his foot that is he has had previously Related Data Previous Rx's Medication Instructions Recorded peg 3350-electrolytes 236 240 ml PO Q10M #4,000 mL 06/11/22 gram-22.74 gram-6.74 gram-5.86 gram solution (Golytely) sodium,potassium,mag sulfates 17.5 See Rx Instructions PO .COMPLEX 07/26/22 gram-3.13 gram-1.6 gram oral soln #354 mL (Suprep Bowel Prep Kit) cephalexin 500 mg capsule 500 mg PO Q6H 7 days #28 caps 03/25/23 doxycycline monohydrate 100 mg 100 mg PO BID 7 days #14 caps 03/25/23 capsule [id number] 10 5 ml PO QID PRN cough #474 mL 03/25/23 mg-28 mg-388 mg/5 mL oral liquid (Tusslin) Allergies Allergy/AdvReac Type Severity Reaction Status Date / Time No Known Allergies Allergy Verified 05/09/22 13:32 [facility] Disclaimer: The information contained in this section may have been updated after the patient was seen, as this information can be updated by other users. Medical History (Updated 03/25/23 @ 18:54 by Ajit Desai MD) Amputation at midfoot No significant past medical history Surgical History Hx of removal of cyst Family History (Updated 07/05/22 @ 12:54 by Major Jernigan RN) Other No significant family history Social History (Updated 07/12/22 @ 09:43 by Yadira Brothers RN) Smoking Status: Never smoker second hand exposure: No alcohol intake: never substance use type: denies use current occupational status: employed Travel in the last 8 weeks: None household members: spouse housing: house current occupation: [employer] current occupational
[2023-03-25 17:31] LABS: Basophils % 0.1 % (0.1-2.0); Eosinophils # 0.1 K/mm3 (0.0-0.4); Eosinophils % 0.5 % (0.1-12.0); Hematocrit 47.6 % (42.0-52.0); Hemoglobin 15.6 g/dL (14.1-18.0); Lymphocytes # 0.5 K/mm3 (0.7-4.5); Mean Corpuscular HGB Conc 32.8 g/dL (31.8-35.4); Mean Corpuscular Hemoglobin 30.4 pg (27.0-31.2); Mean Corpuscular Volume 92.7 fl (80-94); Mean Platelet Volume 7.8 fl (7.4-10.4); Monocytes # 0.7 K/mm3 (0.1-1.0); Monocytes % 4.8 % (1.7-9.3); Neutrophils % 91.6 % (37.0-80.0); Platelet Count 167 K/mm3 (142-424); Red Blood Count 5.14 M/mm3 (4.60-6.20); Red Cell Distribution Width 13.7 % (11.5-17.5); White Blood Count 15.3 K/mm3 (4.8-10.8)
[2023-03-25 17:36] LABS: MANUAL DIFFERENTIAL MANUAL DIFFERENTIAL (MANUAL DIFF)
[2023-03-25 17:46] LABS: Alanine Aminotransferase 36 U/L (12-78); Albumin Level 4.1 g/dl (3.5-5.0); Albumin/Globulin Ratio 1.2 (1.1-1.8); Alkaline Phosphatase 113 U/L (38-126); Anion Gap 17.2 mEq/L (5-15); Aspartate Amino Transferase 44 U/L (17-59); Bilirubin,Total 1.9 mg/dl (0.2-1.3); Blood Urea Nitrogen 17 mg/dl (9-20); Calcium 8.4 mg/dl (8.4-10.2); Carbon Dioxide 23 mmol/L (22.0-30.0); Chloride 96 mmol/L (98-107); Creatinine Clearance Estimated 104 mL/min (50-200); Estimated Glomerular Filt Rate 60 ml/min (>60); GFR (African American) 73 ML/MIN (>60); Globulin 3.5 g/dL (1.3-3.2); Glucose 162 mg/dl (74-100); Magnesium 1.6 mg/dl (1.6-2.3); Potassium 4.2 mmoL/L (3.5-5.1); Sodium 132 mmol/L (136-145); Total Protein,Serum 7.6 g/dl (6.3-8.2)
[2023-03-25 17:50] LABS: D-Dimer 1.28 ug/mL (0.0-0.5)
[2023-03-25 17:53] LABS: Lymphocytes % 6 % (10-50); Monocytes % 1 % (2-9); Neutrophils % 92 % (42-76); Platelet Estimate Normal; RBC Morphology Normal; Total Cells Counted 100
--- NOTE | 2023-03-25 17:57 | CT_ITS ---
PROCEDURE INFORMATION: Exam: CTA Chest With Contrast Exam date and time: 03/25/2023 6:17 PM Age: 67 years old Clinical indication: Shortness of breath; Additional info: Pe protocol TECHNIQUE: Imaging protocol: Computed tomographic angiography of the chest with contrast. Exam focused on the arteries. 3D rendering (Not supervised by radiologist): MIP and/or 3D reconstructed images were created by the technologist. Radiation optimization: All CT scans at this facility use at least one of these dose optimization techniques: automated exposure control; mA and/or kV adjustment per patient size (includes targeted exams where dose is matched to clinical indication); or iterative reconstruction. Contrast material: ISOVUE; Contrast volume: 70 ml; Contrast route: INTRAVENOUS (IV); REPORTING DATA: Count of CT and Cardiac NM exams in prior 12 months: This patient has received 0 known CTs and 0 known cardiac nuclear medicine studies in the 12 months prior to the current study. COMPARISON: CT ANGIO CHEST 05/26/2020 7:40 PM FINDINGS: Pulmonary arteries: No acute pulmonary emboli. Aorta: Unremarkable. No aortic aneurysm. No aortic dissection. Lungs: Focal eventration of the right anteromedial hemidiaphragm. Calcified granuloma within the lingula. Pleural spaces: Unremarkable. No pneumothorax. No pleural effusion. Heart: Unremarkable. No cardiomegaly. No pericardial effusion. Coronary arteries: Atherosclerotic calcification of the visualized proximal left circumflex coronary artery. Lymph nodes: Unremarkable. No enlarged lymph nodes. Diaphragm: Small-sized hiatal hernia. Bones/joints: Multilevel thoracic spine degenerative disc disease, manifest by disc space narrowing and minimal osteophyte formation. Soft tissues: Unremarkable. IMPRESSION: No acute thoracic abnormality.
[2023-03-25 17:59] LABS: NT Pro Brain Natriuretic Pep. 671 pg/mL (0-125)
[2023-03-25 18:01] LABS: Troponin I < 0.01 ng/ml (0.00-0.034)
--- NOTE | 2023-03-25 18:16 | PC.NURSE ---
pt return from CT
--- NOTE | 2023-03-25 18:16 | PC.NURSE ---
PT GONE TO CT
== END 2023-03-25 19:11 | disposition home or self-care (01) ==
PROVIDERS: Emergency Provider Emergency Medicine; PCP Internal Medicine Adolescent Medicine
DX: R06.02 Shortness of breath (principal); R22.41 Localized swelling, mass and lump, right lower limb; R05.9 Cough, unspecified; Z89.431 Acquired absence of right foot; Z89.432 Acquired absence of left foot; L03.90 Cellulitis, unspecified
CPT/HCPCS: 71045; 71275; 80053; 83735; 83880; 84484; 85007; 85025; 85378; 87040; 99284; 99285; Q9967

== ENCOUNTER 2023-03-26 17:18 | Observation (INO) | payer MEDICARE, OTHER, SELFPAY ==
[2023-03-26 17:21] VITALS: BP 113/72; PULSE 76; RESP 20; TEMP 36.8; O2SAT 97; BMI 36.6
--- NOTE | 2023-03-26 17:37 | HMH.EDGENADL ---
Discharge Plan Disposition Chief Complaint: Skin/Abscess/Foreign Body Discharge ED Provider: Hank Santos General Adult HPI General Chief complaint: Skin/Abscess/Foreign Body Stated complaint: blisters on RT foot, swelling RT leg Time Seen by Provider: 03/26/23 17:46 Mode of Arrival: Ambulatory Source of Information: Patient and Spouse Limitations: No Limitations Description of Symptoms (Recalled from ER Triage Doc. by RN): 67 yo M presents to ED with worsening redness to right lower leg. pt was seen in ED yesterday and worked up. blood cultures pending. pt went to follow up appt with PHYSICIAN OFFICE ASSISTANT at PCP office. pts sent to ED for further eval. pt does present with worsening redness, swelling of RLE. pts marked leg and redness has spread. History of Present Illness HPI narrative: Patient presents to the emergency department with right lower extremity erythema and swelling. The patient was seen yesterday for this but reports that it has gotten significantly worse. The patient was seen in Dr. Suárez's office and advised to come in for admission. Onset (ago): day(s) (3) Location: right and lower extremity Consistency: constant Related Data Previous Rx's Medication Instructions Recorded peg 3350-electrolytes 236 240 ml PO Q10M #4,000 mL 06/11/22 gram-22.74 gram-6.74 gram-5.86 gram solution (Golytely) sodium,potassium,mag sulfates 17.5 See Rx Instructions PO .COMPLEX 07/26/22 gram-3.13 gram-1.6 gram oral soln #354 mL (Suprep Bowel Prep Kit) cephalexin 500 mg capsule 500 mg PO Q6H 7 days #28 caps 03/25/23 doxycycline monohydrate 100 mg 100 mg PO BID 7 days #14 caps 03/25/23 capsule [id number] 10 5 ml PO QID PRN cough #474 mL 03/25/23 mg-28 mg-388 mg/5 mL oral liquid (Tusslin) Allergies Allergy/AdvReac Type Severity Reaction Status Date / Time No Known Allergies Allergy Verified 03/26/23 17:36 [facility] Disclaimer: The information contained in this section may have been updated after the patient was seen, as this information can be updated by other users. Medical History (Updated 03/25/23 @ 18:54 by Ajit Desai MD) Amputation at midfoot No significant past medical history Surgical History Hx of removal of cyst Family History (Updated 07/05/22 @ 12:54 by Major Jernigan RN) Other No significant family history Social History Smoking Status: Never smoker second hand exposure: No alcohol intake: never substance use type: denies use current occupational status: employed Travel in the last 8 weeks: None household members: spouse housing: house current occupation: [employer] current occupational exposures/hazards: No caffeine: Yes ROS Obtained: Yes Systems reviewed as appropriate & no additional complaints except as documented Musculoskeletal Musculoskeletal: Reports joint swelling Physical Exam General General appearance: alert and in no apparent distress Head Head exam: atraumatic Eye Eye exam: Present EOMI Neck Neck exam: Absent normal inspection Respiratory Respiratory exam: Absent respiratory distress Cardiovascular Cardiovascular exam: Present regular rate and normal rhythm Abdominal Exam Abdominal exam: Present soft Expanded Lower Extremity Exam Right: Bottom foot image: 1. erythema 2. whitish callus Comment: Significant erythema to the right lower extremity in the anterior location wrapping around to the posterior location patient has chronic deformity of the right foot with good pulses the patient has a flap in that location Neurological Exam Neurological exam: Present alert and oriented X3 Psychiatric Psychiatric exam: Present normal affect and normal mood Skin Skin exam: Present warm and dry Medical Decision Making Nawaf Inquiry Pt receiving controlled substance: No Nawaf was queried for this patient: No Vit
--- NOTE | 2023-03-26 17:45 | XR_ITS ---
PROCEDURE INFORMATION: Exam: XR Right Foot Exam date and time: 03/26/2023 5:42 PM Age: 67 years old Clinical indication: Other: Right foot erythema since Saturday. Prior surgery; Surgery date: 6+ months; Surgery type: Crush injury to right foot 6 years ago with amputation required. TECHNIQUE: Imaging protocol: Radiologic exam of the right foot. Views: 3 or more views. COMPARISON: CR FTR3 FOOT-RT-3 VIEWS 04/24/2016 1:38 PM FINDINGS: Bones/joints: Amputation of the 1st toe beginning at the proximal metatarsal. Calcaneal spurring. Surgical clips in the region of the 1st metatarsal. No definite radiographic evidence for osteomyelitis. Soft tissues: Severe soft tissue swelling most pronounced in the region of the 1st metatarsal. IMPRESSION: Severe soft tissue swelling most pronounced in the region of the 1st metatarsal. No definite radiographic signs of osteomyelitis
[2023-03-26 17:50] VITALS: BP 122/72; PULSE 67; O2SAT 97
[2023-03-26 17:55] LABS: Basophils % 0.2 % (0.1-2.0); Eosinophils # 0.4 K/mm3 (0.0-0.4); Eosinophils % 2.9 % (0.1-12.0); Hematocrit 47.9 % (42.0-52.0); Hemoglobin 15.8 g/dL (14.1-18.0); Lymphocytes # 0.6 K/mm3 (0.7-4.5); Lymphocytes % 4.1 % (10-50); Mean Corpuscular Hemoglobin 30.9 pg (27.0-31.2); Mean Corpuscular Volume 93.7 fl (80-94); Mean Platelet Volume 8.7 fl (7.4-10.4); Monocytes # 0.6 K/mm3 (0.1-1.0); Monocytes % 4.3 % (1.7-9.3); Neutrophils # 11.6 K/mm3 (1.8-7.8); Neutrophils % 88.5 % (37.0-80.0); Platelet Count 180 K/mm3 (142-424); Red Blood Count 5.11 M/mm3 (4.60-6.20); Red Cell Distribution Width 13.8 % (11.5-17.5); White Blood Count 13.2 K/mm3 (4.8-10.8)
[2023-03-26 17:56] LABS: Chloride 99 mmol/L (98-107); MANUAL DIFFERENTIAL MANUAL DIFFERENTIAL (MANUAL DIFF); Potassium 3.8 mmoL/L (3.5-5.1); Sodium 134 mmol/L (136-145)
[2023-03-26 17:59] LABS: Anion Gap 15.8 mEq/L (5-15); Blood Urea Nitrogen 26 mg/dl (9-20); Calcium 8.8 mg/dl (8.4-10.2); Carbon Dioxide 23 mmol/L (22.0-30.0); Creatinine Clearance Estimated 82 mL/min (50-200); Estimated Glomerular Filt Rate 47 ml/min (>60); GFR (African American) 56 ML/MIN (>60); Glucose 117 mg/dl (74-100)
[2023-03-26 18:01] LABS: Lactic Acid 1.2 mmol/L (0.7-2.1)
[2023-03-26 18:25] LABS: Procalcitonin 5.78 ng/mL (0.0-2.0)
[2023-03-26 18:41] LABS: Eosinophils % 1 % (0-3); Lymphocytes % 7 % (10-50); Monocytes % 1 % (2-9); Neutrophils % 91 % (42-76); Platelet Estimate Normal; RBC Morphology Normal; Total Cells Counted 100
--- NOTE | 2023-03-26 19:39 | PC.NURSE ---
Dr. Santos s/w [facility] hospitalist for admission
--- NOTE | 2023-03-26 19:43 | PC.NURSE ---
Registration notified of admission at this time. Pt assigned to room 209 to hospitalist. OBS
--- NOTE | 2023-03-26 19:43 | PC.NURSE ---
notified warehouse attendant for bed assignment
[2023-03-26 19:46] LABS: Coronavirus 19, PCR Not Detected (NotDetected); Influenza A, PCR Not Detected (NotDetected); Influenza B, PCR Not Detected (NotDetected)
--- NOTE | 2023-03-26 20:34 | PC.NURSE ---
called report to Cyndy BUENROSTRO- med/surg unit.
--- NOTE | 2023-03-26 20:46 | PC.NURSE ---
pt arrived to floor at this time
[2023-03-26 20:49] LABS: Strep Scrn Group A (Rapid) Negative (Negative)
[2023-03-26 21:00] VITALS: BP 118/76; BP 125/62; PULSE 62; PULSE 70; RESP 20; TEMP 36.8; TEMP 36.9; O2SAT 96; O2SAT 97; BMI 35.9
--- NOTE | 2023-03-26 21:15 | EXP.HP ---
History of Present Illness *Admission Date: 03/26/23 *Reason for visit:: cellulitis of right lower extremity *History of present illness: 67 year old male patient presented to the ED for c/o swelling and erythema in right lower extremity and blistering of the distal right foot. PMHX of bilateral toe amputations due to steal pipe falling onto feet in 2015. He went to PCP yesterday for same complaint and failed outpatient therapy of antibotics. He was started on keflex and doycycline. ED physician spoke with hospitalist team and the patient will be admitted for IV antibiotics and a podiatry consult. Pt states the pain started Saturday. Denies any known fevers but reports chills on Saturday. Denies any injury or trauma to leg. Redness is outlined by ED on the RLE. The patient does have hx of skin grafts placed on bilateral feet and and skin flap of the amputated greater toe region which is swollen. Pt denies hx of strep or mrsa. Strep screen pending. Denies daily medication use or other PMHX. [facility] Disclaimer: The information contained in this section may have been updated after the patient was seen, as this information can be updated by other users. Medical History Amputation at midfoot No significant past medical history Surgical History Hx of removal of cyst Family History No significant family history Social History Smoking Status: Never smoker second hand exposure: No alcohol intake: never substance use type: denies use current occupational status: employed Travel in the last 8 weeks: None household members: spouse housing: house current occupation: [employer] current occupational exposures/hazards: No caffeine: Yes Review of Systems Review of Systems Review of systems:: pertinent systems reviewed and negative unless documented below Constitutional Constitutional: Reports system reviewed and no additional complaints, except as documented Eyes Eyes: Reports system reviewed and no additional complaints, except as documented ENT Ears, Nose, Mouth, and Throat: Reports system reviewed and no additional complaints, except as documented *Cardiovascular Cardiovascular: Reports system reviewed and no additional complaints, except as documented *Respiratory Respiratory: Reports system reviewed and no additional complaints, except as documented *Gastrointestinal Gastrointestinal: Reports system reviewed and no additional complaints, except as documented *Genitourinary Genitourinary: Reports system reviewed and no additional complaints, except as documented *Musculoskeletal Musculoskeletal: Reports joint swelling (right foot) and Reports limited range of motion Integumentary/Breasts Skin/Breast: Reports system reviewed and no additional complaints, except as documented *Neurologic Neurologic: Reports system reviewed and no additional complaints, except as documented Meds Home Medications and Allergies Home Medications Medication Instructions Recorded Confirmed Type cephalexin 500 mg capsule 500 mg PO Q6H Infection 03/26/23 03/26/23 History doxycycline monohydrate 100 mg 100 mg PO BID Infection 03/26/23 03/26/23 History capsule New Prescriptions to Start Prescriptions: Allergies Allergy/AdvReac Type Severity Reaction Status Date / Time No Known Allergies Allergy Verified 03/26/23 17:36 Exam Data for Last 24 hours Vital signs and Labs for Last 24 Hours: Temp Pulse Resp BP Pulse Ox 98.3 F 62 20 118/76 97 03/26/23 21:00 03/26/23 21:00 03/26/23 21:00 03/26/23 21:00 03/26/23 17:50 Laboratory Results - last 24 hr 03/26/23 17:25: WBC 13.2 H, RBC 5.11, Hgb 15.8, Hct 47.9, MCV 93.7, MCH 30.9, MCHC 33.0, RDW 13.8, Plt Count 180, MPV 8.7, Neut % (Auto) 88.5 H, Lymph %
--- NOTE | 2023-03-26 21:39 | PC.NURSE ---
PRN TYLENOL GIVEN AT 2132 FOR A HEADACHE. WILL REASSESS IN 30 MIN.
--- NOTE | 2023-03-26 22:02 | PC.NURSE ---
PT STATED THAT HEADACHE IS BETTER AT 2202
[2023-03-27] VITALS (19 sets, daily range): BP systolic 104–166; BP diastolic 43–92; PULSE 73–82; RESP 16–20; TEMP 36.4–37.2; O2SAT 94–99; BMI 35.7
--- NOTE | 2023-03-27 04:50 | PC.NURSE ---
pt has had several c/o VARGAS t/o the night around 2100 and 0445, gave 650mg Tylenol each time. difficulty sleeping tonight per pt verbalization, Micah Case assessed pt and ordered 25mg Benadryl at 0200. daugther brought in pt cpap machine, he didn't wear it tonight. upon admission, I marked the increased area that the cellulitis spread to on right leg.
[2023-03-27 06:16] LABS: Basophils % 0.1 % (0.1-2.0); Eosinophils # 0.3 K/mm3 (0.0-0.4); Eosinophils % 2.7 % (0.1-12.0); Hematocrit 43.4 % (42.0-52.0); Hemoglobin 14.3 g/dL (14.1-18.0); Lymphocytes # 0.5 K/mm3 (0.7-4.5); Lymphocytes % 4.7 % (10-50); Mean Corpuscular Hemoglobin 30.7 pg (27.0-31.2); Mean Corpuscular Volume 93.1 fl (80-94); Mean Platelet Volume 8.4 fl (7.4-10.4); Monocytes # 0.5 K/mm3 (0.1-1.0); Monocytes % 4.1 % (1.7-9.3); Neutrophils # 9.8 K/mm3 (1.8-7.8); Neutrophils % 88.4 % (37.0-80.0); Platelet Count 151 K/mm3 (142-424); Red Blood Count 4.66 M/mm3 (4.60-6.20); Red Cell Distribution Width 13.9 % (11.5-17.5)
[2023-03-27 06:18] LABS: Chloride 101 mmol/L (98-107); Potassium 3.8 mmoL/L (3.5-5.1); Sodium 133 mmol/L (136-145)
[2023-03-27 06:21] LABS: Anion Gap 14.8 mEq/L (5-15); Blood Urea Nitrogen 23 mg/dl (9-20); Carbon Dioxide 21 mmol/L (22.0-30.0); Creatinine Clearance Estimated 109 mL/min (50-200); Estimated Glomerular Filt Rate 67 ml/min (>60); GFR (African American) 81 ML/MIN (>60)
[2023-03-27 06:22] LABS: Calcium 8.2 mg/dl (8.4-10.2); Glucose 103 mg/dl (74-100)
[2023-03-27 06:26] LABS: MANUAL DIFFERENTIAL MANUAL DIFFERENTIAL (MANUAL DIFF)
--- NOTE | 2023-03-27 06:49 | CT_ITS ---
FINAL REPORT TECHNIQUE: Thin section axial CT images with coronal and sagittal reformats were performed. This study was performed with techniques to keep radiation doses as low as reasonably achievable (ALARA). Individualized dose reduction techniques using automated exposure control or adjustment of mA and/or kV according to the patient''s size were employed. CLINICAL HISTORY: R/o Osteomyelitis and abscess right foot COMPARISON: None FINDINGS: Postoperative changes from amputation of the first digit at the level of the proximal first metatarsal and amputation of the second digit at the level of the MTP. No acute fracture. Mild degenerative changes. Plantar calcaneal spur. Postoperative changes in the dorsal soft tissues. There is edema or cellulitis of the plantar forefoot. IMPRESSION: Postoperative changes. No convincing osteomyelitis. Plantar forefoot edema or cellulitis. If indicated, MRI would be more sensitive for evaluation of osteomyelitis. Reviewed, Interpreted and Dictated by Valerio Owens III, MD Transcribed by Xena Rod Authenticated and [facility]
[2023-03-27 07:18] LABS: C-Reactive Protein 279.3 mg/L (0-4)
[2023-03-27 07:48] LABS: Eosinophils % 1 % (0-3); Lymphocytes % 6 % (10-50); Monocytes % 3 % (2-9); Neutrophils % 90 % (42-76); Total Cells Counted 100
[2023-03-27 07:50] LABS: Platelet Estimate Normal; RBC Morphology Normal
--- NOTE | 2023-03-27 07:56 | EXP.PHA.CONS ---
Pharmacy Consult Date: 03/27/23 Time: 07:56 Referring provider: DR. HANEY Reason for Consult:: VANCOMYCIN DOSING Allergies Allergy/AdvReac Type Severity Reaction Status Date / Time No Known Allergies Allergy Verified 03/26/23 17:36 Home Medications Medication Instructions Recorded Confirmed Type cephalexin 500 mg capsule 500 mg PO Q6H Infection 03/26/23 03/26/23 History doxycycline monohydrate 100 mg 100 mg PO BID Infection 03/26/23 03/26/23 History capsule New Prescriptions to Start Prescriptions: Height: 1.83 m Weight: 119.833 kg Laboratory Results:: Laboratory Results - last 24 hr 03/26/23 17:25: WBC 13.2 H, RBC 5.11, Hgb 15.8, Hct 47.9, MCV 93.7, MCH 30.9, MCHC 33.0, RDW 13.8, Plt Count 180, MPV 8.7, Neut % (Auto) 88.5 H, Lymph % (Auto) 4.1 L, Gregory % (Auto) 4.3, Eos % (Auto) 2.9, Baso % (Auto) 0.2, Neut # (Auto) 11.6 H, Lymph # (Auto) 0.6 L, Gregory # (Auto) 0.6, Eos # (Auto) 0.4, Baso # (Auto) 0.0, Total Counted 100, Neutrophils % (Manual) 91 H, Lymphocytes % (Manual) 7 L, Monocytes % (Manual) 1 L, Eosinophils % (Manual) 1, Platelet Estimate Normal, RBC Morphology Normal 03/26/23 17:25: Sodium 134 L, Potassium 3.8, Chloride 99, Carbon Dioxide 23, Anion Gap 15.8 H, BUN 26 H D, Creatinine 1.50 H D, Estimated Creat Clear 82, Estimated GFR 47 L, Est GFR ( Amer) 56 L D, Glucose 117 H, Calcium 8.8, Procalcitonin 5.78 H 03/26/23 17:25: Lactate 1.2 03/26/23 17:48: SARS-CoV-2 (PCR) Not detected, Influenza A Untype (PCR) Not detected, Influenza Type B (PCR) Not detected 03/26/23 20:35: Group A Strep Rapid Negative 03/27/23 05:37: WBC 11.0 H, RBC 4.66, Hgb 14.3, Hct 43.4, MCV 93.1, MCH 30.7, MCHC 33.0, RDW 13.9, Plt Count 151, MPV 8.4, Neut % (Auto) 88.4 H, Lymph % (Auto) 4.7 L, Gregory % (Auto) 4.1, Eos % (Auto) 2.7, Baso % (Auto) 0.1, Neut # (Auto) 9.8 H, Lymph # (Auto) 0.5 L, Gregory # (Auto) 0.5, Eos # (Auto) 0.3, Baso # (Auto) 0.0, Total Counted 100, Neutrophils % (Manual) 90 H, Lymphocytes % (Manual) 6 L, Monocytes % (Manual) 3, Eosinophils % (Manual) 1, Platelet Estimate Normal, RBC Morphology Normal 03/27/23 05:37: Sodium 133 L, Potassium 3.8, Chloride 101, Carbon Dioxide 21 L, Anion Gap 14.8, BUN 23 H, Creatinine 1.10 D, Estimated Creat Clear 109, Estimated GFR 67, Est GFR ( Amer) 81 D, Glucose 103 H, Calcium 8.2 L 03/27/23 05:37: C-Reactive Protein 279.3 H Medical History: Medical History (Updated 03/26/23 @ 21:31 by CHAYA Castaneda) Amputation at midfoot No significant past medical history Assessment and Plan Assessment and plan all Dx Assessment and Plan for all problems:: Pharmacokinetic dosing service Objective: Patient: Floor: Age: 67 yo Serum creatinine: 1.1 mg/dL Height: 72.0 Inches Weight (kg): 119.8 Assessment: IBW (kg): 77.60 Dosing wt(kg): 119.8 Estimated Creatinine clearance (ml/min): 70.5 CRCL method: Cockcroft and Gault using ibw(default). Drug selected: Vancomycin Loading dose (mg): 0 Vd (liters): 95.8 (factor used: 0.8 L/kg) Casey (hr-1): 0.063 Half life (hrs): 11.00 Recommended dose: 1750 mg Interval: 12 hrs Infusion time (hrs): 2.0 Predicted peak (mcg/mL): 32.4 Predicted trough (mcg/mL): 17.26 Total body weight is being used for vancomycin dosing. Recommendations: PATIENT RECEIVED VANCOMYCIN 2500 MG X1 DOSE OVERNIGHT. Give Vancomycin 1750 mg q 12 hrs with an expected Cpeak of 32.4 mcg/ml and an expected Ctrough of 17.26 mcg/ml. ----Vanco only - ignore for aminoglycosides----- CLvanco= 6.04 L/hr AUC 0-24 /WALTER Data: WALTER 0.5 mcg/mL: AUC/WALTER: 1158.9 WALTER 1.0 mcg/mL: AUC/WALTER: 579.5 --------- WALTER 1.5 mcg/mL: AUC/WALTER: 386.3 WALTER 2.0 mcg/mL: AUC/WALTER: 289.7
--- NOTE | 2023-03-27 08:10 | HMH.PHAINT1 ---
Pharmacy Intervention Comments: PATIENT'S HOME MEDICATIONS REVIEWED AND VERIFIED WITH PATIENT. -ALBANIA COPE, PHARM STUDENT
[2023-03-27 08:12] LABS: Erythrocyte Sedimentation Rate 34 mm/hr (0-20)
--- NOTE | 2023-03-27 10:09 | EXP.ORTH.CON ---
History of Present Illness *Admission Date: 03/26/23 *History of present illness: 67 year old male patient presented to the ED for c/o swelling and erythema in right lower extremity and blistering of the distal right foot. 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 He went to PCP yesterday for same complaint and failed outpatient therapy of antibotics. He was started on keflex and doycycline. ED physician spoke with hospitalist team and the patient will be admitted for IV antibiotics and a podiatry consult. Pt states the pain started Saturday. Denies any known fevers but reports chills on Saturday. Denies any injury or trauma to leg. Redness is outlined by ED on the RLE. The patient does have hx of skin grafts placed on bilateral feet and and skin flap of the amputated greater toe region which is swollen. Pt denies hx of strep or mrsa. Strep screen pending. Denies daily medication use or other PMHX. Podiatry consulted for evaluation of right lower extremity cellulitis and infection. Patient reports decreased appetite but did eat breakfast this morning. He reports the right medial foot has always been swollen since his multiple skin graft procedures and amputation surgery in 2016. He reports blistering started about 2 weeks ago and the cellulitis has been present for 3 days. [facility] Disclaimer: The information contained in this section may have been updated after the patient was seen, as this information can be updated by other users. Medical History Amputation at midfoot No significant past medical history Surgical History Hx of removal of cyst Family History No significant family history Social History Smoking Status: Never smoker second hand exposure: No alcohol intake: never substance use type: denies use current occupational status: employed Travel in the last 8 weeks: None household members: spouse housing: house current occupation: [employer] current occupational exposures/hazards: No caffeine: Yes Review of Systems Review of Systems Review of systems:: pertinent systems reviewed and negative unless documented below Constitutional Constitutional: Reports system reviewed and no additional complaints, except as documented Eyes Eyes: Reports system reviewed and no additional complaints, except as documented ENT Ears, Nose, Mouth, and Throat: Reports system reviewed and no additional complaints, except as documented *Cardiovascular Cardiovascular: Reports system reviewed and no additional complaints, except as documented, Reports dyspnea and Reports leg edema *Respiratory Respiratory: Reports system reviewed and no additional complaints, except as documented and Reports dyspnea *Gastrointestinal Gastrointestinal: Reports system reviewed and no additional complaints, except as documented *Genitourinary Genitourinary: Reports system reviewed and no additional complaints, except as documented *Musculoskeletal Musculoskeletal: Reports joint swelling (right foot) and Reports limited range of motion Integumentary/Breasts Skin/Breast: Reports system reviewed and no additional complaints, except as documented *Neurologic Neurologic: Reports system reviewed and no additional complaints, except as documented Psychiatric Psychiatric: Reports system reviewed and no additional complaints, except as documented Meds Home Medications and Allergies Home Medications Medication Instructions Recorded Confirmed Type cephalexin 500 mg capsule 500 mg PO Q6H Infection 03/26/23 03/26/23 History doxycycline monohydrate 100 mg 100 mg PO BID Infection 03/26/23 03/26/23 History capsule New Prescriptions to Start Prescriptions: Allergies Allergy/AdvReac Type Severity Reacti
--- NOTE | 2023-03-27 11:24 | ECG_ITS ---
APPROVED REPORT Exam: Resting ECG HR:77 bpm ECG Measurements Heart Rate 77 AXES OR 192 P 47 QRSd 116 QRS 63 QT 393 T 49 QTc 425 Conclusion SINUS RHYTHM NORMAL ECG UNCONFIRMED REPORT Electronically signed by : Kaiden Gonzales MD 03/28/2023 09:49:55
--- NOTE | 2023-03-27 14:38 | EXP.ANES.CKL ---
[facility] Disclaimer: The information contained in this section may have been updated after the patient was seen, as this information can be updated by other users. Medical History Amputation at midfoot No significant past medical history Surgical History Hx of removal of cyst Family History No significant family history Social History Smoking Status: Never smoker second hand exposure: No alcohol intake: never substance use type: denies use current occupational status: employed Travel in the last 8 weeks: None household members: spouse housing: house current occupation: [employer] current occupational exposures/hazards: No caffeine: Yes [facility] Anesthesia Checklist Patient Identification Patient Identification: Arm Band and Verbal (Name & ) Structural Data Admitted From: Other Planned Operative Procedure/s: I&D foot Consent for Planned Operative Procedure(s) Verified: Yes Verified Documents: Surgical Consent and History and Physical NPO Status Verified Time NPO: 07:30 Additional verifications Anesthesia Reactions: No Hx Blood Transfusions: No Blood Transfusion Reaction: No Airway Assessment C-Spine Mobility Assessed: Yes TMJ Mobility Assessed: Yes Dentition: Good Dentition Neurological Assessment Level of Consciousness: Awake and Alert Anesthesia Plan Anesthesia Risk discussed: Yes ASA Class: II Anesthesia Type: IV sedation
--- NOTE | 2023-03-27 16:43 | EXP.OP.NOTE ---
Date of procedure: 03/27/23 Pre-op Diagnosis:: Right foot/leg cellulitis Right foot abscess Post-op Diagnosis:: Same Procedure performed:: Right foot I&D, foreign body removal, callus debridement Right ankle incision and drainage, deep wound cultures Right foot irrigation and debridement Excision of lipoma, excision of scar tissue Adjacent soft tissue rearrangement (flap) Surgeon:: Ayala Wright DPM FACILITY ENGINEER:: Other (Addie Grajeda) Anesthesia: local (0.5% marcaine plain) and LMA Estimated blood loss (mL): 30 Clinical Note:: Patient is a 67-year-old male who sustained a crush injury to both feet back in 2016. He subsequently had bilateral foot partial amputations with extensive skin grafting on the right. He reports 2 weeks ago started blistering and over the weekend he developed cellulitis to the right lower extremity. New images were discussed with the patient.? We discussed conservative versus surgical treatment options.? We discussed conservative care including continued oral vs IV antibiotics and local wound care versus surgical incision and drainage.? Discussed closure with drain versus leaving open and packing. Patient understands that they could have wound healing complications including delayed healing and infection. We discussed that if the wound does not heal, it is possible that they may need further debridement. Patient understands if infection spreads into the bone, it may warrant proximal amputation and could result in further loss of digits, loss of partial foot or loss of leg. We discussed the risks and benefits in great detail. Other surgical risks include: prolonged pain and swelling, further infection requiring oral or IV antibiotics, delay in healing of soft tissue or bone, nerve or blood vessel damage, CRPS/RSD, DVT, anesthesia complications, and even . All questions answered. Patient verbalized understanding. Consent obtained. Operative findings:: Right foot blistering noted to the Sub third metatarsal area with callus noted. I&D over the callused region showed a piece of splinter could be shard of metal, this was excised and sent to pathology. The nonviable tissue at this area was debrided full-thickness with 15 blade and forceps through skin and subcutaneous tissue into deep fascia. Infection seem to be localized to this area. There is no tracking or sinus drainage noted. A separate incision made over the medial ankle about 1 x 0.1 x 1 cm through skin into subcutaneous tissue. No purulent or malodor noted at this area. Some serous lymphatic type drainage noted, deep wound cultures taken. Medial foot had significant edema appreciated and scar contracture secondary to prior surgeries and skin grafting. Incision made over this area yielded no purulence malodor or deep infection. Significant lipoma noted to the area which was excised in total and was over 7 x 5 cm. There was no tracking or deep opening to the bone, no evidence of deeper abscess or osteomyelitis. Operative note:: On this date and time the patient was deemed an appropriate surgical candidate. With informed consent time patient was transferred from the preoperative holding area to the operating theater placed on table in a normal supine position. Right lower extremities prepped and draped in normal sterile fashion. No tourniquet utilized. IV Vanco given on floor, IV Zosyn given in OR. 20 cc of half percent Marcaine plain were infiltrated in regional ankle block. Right ankle incision and drainage: An incision was made over the medial ankle about 1 x 0.1 x 1 cm through skin into subcutaneous tissue. Area was explored with hemostat and no purulence or malodor noted. Lymphatics fluid, deep wound cultures. Wound was flushed with gentamicin irrigation and left open to drain. Right foot incision and drainage, foreign body removal, callus debridement: Attention was noted to the right plantar foot where blistering was noted over third metatarsal. Callus noted to the p
--- NOTE | 2023-03-27 16:49 | P.PNANES_ITS ---
[facility] Anesthesia Record Part I Anesthesia Record I Intake, IV Amount: 800 Estimated blood loss (mL): 100 Urine output (mL): 0 Blood Pressure: 157/92 SaO2: 99 Pulse Rate: 78 Respiratory Rate: 16 Temperature: 98 F Patient is:: Awake and Stable Stable to PACU at:: 16:45
--- NOTE | 2023-03-27 17:13 | XR_ITS ---
PROCEDURE INFORMATION: Exam: XR Right Foot Exam date and time: 03/27/2023 6:11 PM Age: 67 years old Clinical indication: Pain; Prior surgery; Surgery date: Post-operative (0-2 days); Surgery type: Right foot i and d. Exam done portable. ; Additional info: Postop i d, flap TECHNIQUE: Imaging protocol: Radiologic exam of the right foot. Views: 3 or more views. COMPARISON: CT FOOT RT WO CON 03/27/2023 7:23 AM FINDINGS: Bones/joints: Postsurgical changes of the right foot with amputation of the great toe at the proximal metatarsal and of the 2nd toe at the level of the MTP joint are redemonstrated. No acute fracture. No definite evidence of osteomyelitis. Small plantar calcaneal enthesophyte. Soft tissues: Soft tissue edema versus cellulitis predominantly of the forefoot with surgical drain in place, possible soft tissue gas versus bandage material. IMPRESSION: 1. Postsurgical changes of the right foot are redemonstrated. No definite evidence of osteomyelitis. MRI could be obtained as clinically indicated to further evaluate. 2. Soft tissue edema versus cellulitis predominantly of the forefoot with surgical drain in place. Possible soft tissue gas versus bandage material.
--- NOTE | 2023-03-27 17:13 | XR_ITS ---
PROCEDURE INFORMATION: Exam: XR Right Ankle Exam date and time: 03/27/2023 6:11 PM Age: 67 years old Clinical indication: Pain; Ankle; Prior surgery; Surgery date: Post-operative (0-2 days); Surgery type: Right foot i and d procedure a few hours ago. ; Additional info: Postop i d TECHNIQUE: Imaging protocol: Radiologic exam of the right ankle. Views: 3 or more views. COMPARISON: CT FOOT RT WO CON 03/27/2023 7:23 AM FINDINGS: Bones/joints: No acute fracture or dislocation of the ankle. Postsurgical changes of the foot, see separate right foot radiograph report. Soft tissues: Soft tissue edema versus cellulitis predominantly of the forefoot with surgical drain in place. Possible soft tissue gas versus bandage material. IMPRESSION: 1. No acute osseous abnormality of the ankle. 2. Postsurgical changes of the foot, see separate right foot radiograph report.
--- NOTE | 2023-03-27 17:39 | SUR.PHASEI ---
1711- Report called to med/surg nurse Shelbi 1715- Patient transported to med/surg room 209 in stable condition with Tashi. Bed locked and left in lowest position. Vital signs stable. Dressing clean dry and intact. Patient left in the care of PORTER Mario.
--- NOTE | 2023-03-27 23:10 | EXP.ACUTE.PN ---
Subjective *Date: 03/27/23 *Time: 13:10 Interval history: Slight improvement in redness this morning. Inflammatory markers remain elevated. White cell count improving at 11. Denies any chest pain, shortness of breath, fever or chills. Leg still somewhat tender. Redness receding from leading edge. No john drainage from foot Medical Exam Vital signs and Labs for Last 24 Hours: Vital Signs Temp Pulse Pulse Resp BP BP Pulse Ox 03/27/23 22:05 98.6 F 81 18 132/71 94 L 03/27/23 20:00 97 03/27/23 21:05 98.4 F 80 18 129/68 96 03/27/23 20:05 98.8 F 81 18 109/59 L 97 03/27/23 19:35 99 F 82 18 119/43 L 97 03/27/23 19:05 82 19 128/65 99 03/27/23 18:35 80 18 135/70 98 03/27/23 18:05 98.0 F 75 18 111/53 L 98 03/27/23 17:50 74 17 104/47 L 97 03/27/23 17:35 73 18 108/51 L 98 03/27/23 17:20 97.5 F L 73 20 148/82 H 98 03/27/23 17:15 80 19 166/92 H 98 03/27/23 17:05 75 18 163/79 H 97 03/27/23 16:55 76 19 151/87 H 98 03/27/23 16:45 98.0 F 78 17 157/92 H 99 03/27/23 08:00 96 03/27/23 08:00 97.9 F 77 18 120/62 96 03/27/23 04:00 97.8 F 80 20 123/67 97 03/27/23 16:51 98 F 78 16 157/92 H Intake and Output 03/27/23 03/27/23 03/27/23 07:59 15:59 23:59 Intake Total 1931 240 / 1932 1370 1932 Output Total 0 / 150 150 / 150 Balance 1781 240 2 1220 178 Intake: Intake, Oral Amount 240 / 360 120 / 360 Intake, Other Amount 56 / 56 Intake, Total IV Amount 266 / 1516 1250 / 1516 Cefepime HCl 2 gm In 0.9 % 100 / 100 Sodium Chloride 100 ml @ 200 mls/hr IV Q8H [facility] Rx#:[id number] Vancomycin HCl 2,500 mg In 0.9 266 / 266 % Sodium Chloride 250 ml @ 125 mls/hr IV ONCE ONE Rx#:[id number] Vancomycin/Water For Inj (Peg) 350 / 350 1.75 gm In 350 ml @ 175 mls/hr IV 1100,2300 [facility] Rx#:[id number] Output: Output, Urine Amount 0 / 150 150 / 150 Other: Intake, Other Source Saline Solution Number of Unmeasured Voids 1 0 Weight 119.833 kg Patient Weight 03/27/23 23:59 Weight 119.833 kg Laboratory Results - last 24 hr 03/27/23 05:37: WBC 11.0 H, RBC 4.66, Hgb 14.3, Hct 43.4, MCV 93.1, MCH 30.7, MCHC 33.0, RDW 13.9, Plt Count 151, MPV 8.4, Neut % (Auto) 88.4 H, Lymph % (Auto) 4.7 L, [place] % (Auto) 4.1, Eos % (Auto) 2.7, Baso % (Auto) 0.1, Neut # (Auto) 9.8 H, Lymph # (Auto) 0.5 L, [place] # (Auto) 0.5, Eos # (Auto) 0.3, Baso # (Auto) 0.0, Total Counted 100, Neutrophils % (Manual) 90 H, Lymphocytes % (Manual) 6 L, Monocytes % (Manual) 3, Eosinophils % (Manual) 1, Platelet Estimate Normal, RBC Morphology Normal 03/27/23 05:37: Sodium 133 L, Potassium 3.8, Chloride 101, Carbon Dioxide 21 L, Anion Gap 14.8, BUN 23 H, Creatinine 1.10 D, Estimated Creat Clear 109, Estimated GFR 67, Est GFR ( Amer) 81 D, Glucose 103 H, Calcium 8.2 L 03/27/23 05:37: ESR 34 H 03/27/23 05:37: C-Reactive Protein 279.3 H I & O for Labs for Last 24 Hours: Intake & Output 03/24/23 03/25/23 03/26/23 03/27/23 23:59 23:59 23:59 23:59 Intake Total 1932 / 193 Output Total 0 / 0 150 / 150 Balance 0 / 322 1781 / 1781 Weight 120.23 kg 119.833 kg Microbiology Reports for the Last 24 Hours: Microbiology 03/27/23 15:53 Ankle,Right Gram Stain - Final Constitutional: Present no acute distress and obese Head: Present atraumatic and normocephalic ENT: Present normal exam Respiratory: Present normal respiratory effort; Absent rhonchi, wheezes or crackles Cardiac: Present Reg Rate and Rhythm GI: Present normal bowel sounds; Absent tenderness Extremities: Present tenderness Comment:: Mild tenderness in the lower region of the leg, slight warmth with erythema of the lower leg. Abnormalities of bilateral feet from previous amputations and grafting. Graft/flap of right foot with blister at distal end under middle digit,
[2023-03-28 00:05] VITALS: BP 131/71; PULSE 80; RESP 18; TEMP 36.9; O2SAT 97
--- NOTE | 2023-03-28 01:48 | PC.NURSE ---
PATIENT HAS BEEN MEDICATED WITH NORCO 7.5/325 MG 1 TAB PO TWICE FOR SURGICAL PAIN 5/. AT 0123 WAS MEDICATED WITH MORPHINE 2 NG IVP FOR SURGICAL PAIN 8/ RIGHT FOOT. MEDICATION IS EFFECTIVE BUT NOT LONG LASTING. DRSG TO RIGHT FOOT IS C/D/I, LAKEISHA DRAIN IN PLACE WITH SCAN TAMT OF SERO SANGUINOUS DRAINAGE. SPOUSE AT BED SIDE.
[2023-03-28 04:00] VITALS: BP 103/54; PULSE 68; RESP 16; TEMP 36.6; O2SAT 94; BMI 36.1
[2023-03-28 07:29] LABS: Chloride 104 mmol/L (98-107); Potassium 3.8 mmoL/L (3.5-5.1); Sodium 134 mmol/L (136-145)
[2023-03-28 07:31] LABS: Alanine Aminotransferase 28 U/L (12-78); Alkaline Phosphatase 88 U/L (38-126); Anion Gap 9.8 mEq/L (5-15); Aspartate Amino Transferase 33 U/L (17-59); Bilirubin,Total 0.5 mg/dl (0.2-1.3); Blood Urea Nitrogen 20 mg/dl (9-20); Carbon Dioxide 24 mmol/L (22.0-30.0); Creatinine Clearance Estimated 101 mL/min (50-200); Estimated Glomerular Filt Rate 60 ml/min (>60); GFR (African American) 73 ML/MIN (>60)
[2023-03-28 07:32] LABS: Albumin Level 2.8 g/dl (3.5-5.0); Albumin/Globulin Ratio 0.9 (1.1-1.8); Calcium 7.5 mg/dl (8.4-10.2); Globulin 3.1 g/dL (1.3-3.2); Glucose 109 mg/dl (74-100); Total Protein,Serum 5.9 g/dl (6.3-8.2)
[2023-03-28 07:36] LABS: Basophils % 0.2 % (0.1-2.0); Eosinophils # 0.4 K/mm3 (0.0-0.4); Eosinophils % 4.2 % (0.1-12.0); Hematocrit 37.4 % (42.0-52.0); Hemoglobin 11.9 g/dL (14.1-18.0); Lymphocytes % 10.7 % (10-50); Mean Corpuscular HGB Conc 31.8 g/dL (31.8-35.4); Mean Corpuscular Hemoglobin 30.3 pg (27.0-31.2); Mean Corpuscular Volume 95.2 fl (80-94); Mean Platelet Volume 8.3 fl (7.4-10.4); Monocytes # 0.5 K/mm3 (0.1-1.0); Monocytes % 5.6 % (1.7-9.3); Neutrophils # 7.2 K/mm3 (1.8-7.8); Neutrophils % 79.4 % (37.0-80.0); Platelet Count 184 K/mm3 (142-424); Red Blood Count 3.92 M/mm3 (4.60-6.20); Red Cell Distribution Width 13.8 % (11.5-17.5); White Blood Count 9.1 K/mm3 (4.8-10.8)
[2023-03-28 07:58] VITALS: BP 109/58; PULSE 74; RESP 18; TEMP 36.7; O2SAT 97
[2023-03-28 08:04] LABS: Erythrocyte Sedimentation Rate 102 mm/hr (0-20)
--- NOTE | 2023-03-28 08:12 | EXP.ORTH.PN ---
Subjective *Date: 03/28/23 *Time: 11:49 Interval history: Patient is resting comfortably in bed and reports pain and swelling has improved. He reports his appetite is increased today. Right lower extremity dressing clean dry and intact, LAKEISHA drain intact. He denies nausea/vomiting, fever/chills, chest pain. Ortho Exam (Inpt) Vital signs and Labs for Last 24 Hours: Temp Pulse Resp BP Pulse Ox 98.1 F 74 18 109/58 L 97 03/28/23 07:58 03/28/23 07:58 03/28/23 07:58 03/28/23 07:58 03/28/23 07:58 Laboratory Results - last 24 hr 03/27/23 05:37: ESR 34 H 03/28/23 06:45: WBC 9.1, RBC 3.92 L, Hgb 11.9 L, Hct 37.4 L, MCV 95.2 H, MCH 30.3, MCHC 31.8, RDW 13.8, Plt Count 184, MPV 8.3, Neut % (Auto) 79.4, Lymph % (Auto) 10.7, [place] % (Auto) 5.6, Eos % (Auto) 4.2, Baso % (Auto) 0.2, Neut # (Auto) 7.2, Lymph # (Auto) 1.0, [place] # (Auto) 0.5, Eos # (Auto) 0.4, Baso # (Auto) 0.0, ESR 102 H, Sodium 134 L, Potassium 3.8, Chloride 104, Carbon Dioxide 24, Anion Gap 9.8, BUN 20, Creatinine 1.20, Estimated Creat Clear 101, Estimated GFR 60, Est GFR ( Amer) 73, Glucose 109 H, Calcium 7.5 L, Total Bilirubin 0.5, AST 33, ALT 28, Alkaline Phosphatase 88, C-Reactive Protein 151.0 H, Total Protein 5.9 L, Albumin 2.8 L, Globulin 3.1, Albumin/Globulin Ratio 0.9 L Temp Pulse Resp BP Pulse Ox 97.9 F 77 18 120/62 96 03/27/23 08:00 03/27/23 08:00 03/27/23 08:00 03/27/23 08:00 03/27/23 08:00 Laboratory Results - last 24 hr 03/26/23 17:25: WBC 13.2 H, RBC 5.11, Hgb 15.8, Hct 47.9, MCV 93.7, MCH 30.9, MCHC 33.0, RDW 13.8, Plt Count 180, MPV 8.7, Neut % (Auto) 88.5 H, Lymph % (Auto) 4.1 L, [place] % (Auto) 4.3, Eos % (Auto) 2.9, Baso % (Auto) 0.2, Neut # (Auto) 11.6 H, Lymph # (Auto) 0.6 L, [place] # (Auto) 0.6, Eos # (Auto) 0.4, Baso # (Auto) 0.0, Total Counted 100, Neutrophils % (Manual) 91 H, Lymphocytes % (Manual) 7 L, Monocytes % (Manual) 1 L, Eosinophils % (Manual) 1, Platelet Estimate Normal, RBC Morphology Normal 03/26/23 17:25: Sodium 134 L, Potassium 3.8, Chloride 99, Carbon Dioxide 23, Anion Gap 15.8 H, BUN 26 H D, Creatinine 1.50 H D, Estimated Creat Clear 82, Estimated GFR 47 L, Est GFR ( Amer) 56 L D, Glucose 117 H, Calcium 8.8, Procalcitonin 5.78 H 03/26/23 17:25: Lactate 1.2 03/26/23 17:48: SARS-CoV-2 (PCR) Not detected, Influenza A Untype (PCR) Not detected, Influenza Type B (PCR) Not detected 03/26/23 20:35: Group A Strep Rapid Negative 03/27/23 05:37: WBC 11.0 H, RBC 4.66, Hgb 14.3, Hct 43.4, MCV 93.1, MCH 30.7, MCHC 33.0, RDW 13.9, Plt Count 151, MPV 8.4, Neut % (Auto) 88.4 H, Lymph % (Auto) 4.7 L, [place] % (Auto) 4.1, Eos % (Auto) 2.7, Baso % (Auto) 0.1, Neut # (Auto) 9.8 H, Lymph # (Auto) 0.5 L, [place] # (Auto) 0.5, Eos # (Auto) 0.3, Baso # (Auto) 0.0, Total Counted 100, Neutrophils % (Manual) 90 H, Lymphocytes % (Manual) 6 L, Monocytes % (Manual) 3, Eosinophils % (Manual) 1, Platelet Estimate Normal, RBC Morphology Normal 03/27/23 05:37: Sodium 133 L, Potassium 3.8, Chloride 101, Carbon Dioxide 21 L, Anion Gap 14.8, BUN 23 H, Creatinine 1.10 D, Estimated Creat Clear 109, Estimated GFR 67, Est GFR ( Amer) 81 D, Glucose 103 H, Calcium 8.2 L 03/27/23 05:37: ESR 34 H 03/27/23 05:37: C-Reactive Protein 279.3 H I & O for Labs for Last 24 Hours: Intake & Output 03/25/23 03/26/23 03/27/23 03/28/23 11:59 11:59 11:59 11:59 Intake Total 562 / 562 2420 / 2420 Output Total 0 / 0 1750 / 1750 Balance 562 / 562 670 / 670 Weight 264 lb 3 oz 266 lb 6.4 oz Intake & Output 03/24/23 03/25/23 03/26/23 03/27/23 11:59 11:59 11:59 11:59 Intake Total 562 / 562 Output Total 0 / 0 Balance 562 / 562 Weight 264 lb 3 oz Microbiology Reports for the Last 24 Hours: Microbiology 03/27/23 15:53 Ankle,Right Gram Stain - Final Constitutional: Present no acute distress and obese Head: Present normocephalic Neck: Present normal inspection Respiratory: Present able to speak in complete sentences Car
--- NOTE | 2023-03-28 10:05 | HMH.OTEV ---
OT Inpatient Evaluation Rehab OT IP Evaluation Start: 03/28/23 07:44 Freq: ONCE Status: Active Protocol: Document 03/28/23 09:56 [facility] (Rec: 03/28/23 10:05 [facility] [id number]) Rehab OT IP Assessment Subjective History Pt oriented x 4 on arrival. Pt agreeable to engage in therapy evaluation; present during therapy evaluation. Pt was admitted on 03/26/23 due to cellulitis of right lower extremity. Pt required the following procedures to right foot on and is now non weight bearing: Right foot I&D, foreign body removal, callus debridement Right ankle incision and drainage, deep wound cultures Right foot irrigation and debridement Excision of lipoma, excision of scar tissue Adjacent soft tissue rearrangement Prior to hospital admission, pt was independent with all ADLs and IADLs. Pt still worked fulltime and farmed. Pt did not require any type of AE during functional mobility tasks. Pt also still drove. 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 Subjective I am normally able to do whatever I need to. Pt completed bed mobility and went from supine to sitting at eob with sba. Pt stood from eob with sba maintain NWB on right LE. Pt engaged in functional mobility task of ~ 20 feet with sba and rolling walker. Pt sat back down at eob with sba. Bed mobility completed and he went from sitting to supine with sba. Pt was left with call tee and
--- NOTE | 2023-03-28 10:32 | PC.NURSE ---
COURTESY TECH NOTE; ROUNDED ON PT 0835, PT DENIED NEED FOR DRINK, ASSISTANCE WITH RESTROOM, AND NEED TO REPOSITION IN BED. CALL LIGHT WITHIN REACH, NO FURTHER REQUESTS AT THIS TIME ANGELA MOREL
--- NOTE | 2023-03-28 11:05 | EXP.DC.SUM ---
General Admission date:: 03/26/23 Discharge date: 03/28/23 HPI HPI HPI: 67 year old male patient presented to the ED for c/o swelling and erythema in right lower extremity and blistering of the distal right foot. 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 He went to PCP yesterday for same complaint and failed outpatient therapy of antibotics. He was started on keflex and doycycline. ED physician spoke with hospitalist team and the patient will be admitted for IV antibiotics and a podiatry consult. Pt states the pain started Saturday. Denies any known fevers but reports chills on Saturday. Denies any injury or trauma to leg. Redness is outlined by ED on the RLE. The patient does have hx of skin grafts placed on bilateral feet and and skin flap of the amputated greater toe region which is swollen. Pt denies hx of strep or mrsa. Strep screen pending. Denies daily medication use or other PMHX. Podiatry consulted for evaluation of right lower extremity cellulitis and infection. Patient reports decreased appetite but did eat breakfast this morning. He reports the right medial foot has always been swollen since his multiple skin graft procedures and amputation surgery in 2016. He reports blistering started about 2 weeks ago and the cellulitis has been present for 3 days. Hospital Course Hospital Course Hospital Course: 67 year old male patient presented to the ED for c/o swelling and erythema in right lower extremity and blistering of the distal right foot. 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 He went to PCP yesterday for same complaint and failed outpatient therapy of antibotics. Antibiotic coverage was broadened after admission to include vancomycin and cefepime. Podiatry was consulted. Patient taken to the OR out of concern for infection in his foot. Found to have retained foreign body (metal splinter) in right foot, likely source of his infection. Erythema improving. Transition to oral antibiotics and discharged home for continued care. Close follow-up with podiatry. Problems addressed as follows: CELLULITIS OF RIGHT LOWER LEG Swelling of right foot Retained foreign body, foot infection -Admitted for IV antibiotics after failure of oral course initiated as outpatient. Imaging obtained showing no definitive fluid collection. Significant erythema of the lower leg with streaking up medial thigh. Responded well to initiation of vancomycin and cefepime. Podiatry was consulted, patient was ultimately taken for surgery with debridement of sore under middle toe on right foot. Found to have metal splinter in the subcutaneous tissue. Likely source for his infection. White cell count normalized during hospitalization. Erythema improving. Inflammatory markers improving. Transitioned to oral antibiotics to complete 7-day course. Continue Levaquin 750 mg daily for total of 6 more days. Zyvox 600 mg twice daily for 5 more days. Plan for close follow-up with PCP and podiatry over the next 1 to 2 weeks. Stable for discharge home. counseled on wound care. Patient placed in postop boot. Counseled on ambulation and weightbearing status. Spent 40 minutes in discharge counseling and direct care with patient. Exam Data for Last 24 hours Vital signs and Labs for Last 24 Hours: Temp Pulse Resp BP Pulse Ox 98.1 F 74 18 109/58 L 97 03/28/23 07:58 03/28/23 07:58 03/28/23 07:58 03/28/23 07:58 03/28/23 07:58 Laboratory Results - last 24 hr 03/28/23 06:45: WBC 9.1, RBC 3.92 L, Hgb 11.9 L, Hct 37.4 L, MCV 95.2 H, MCH 30.3, MCHC 31.8, RDW 13.8, Plt Count 184, MPV 8.3, Neut % (Auto) 79.4, Lymph % (Auto) 10.7, [place] % (Auto) 5.6, Eos % (Auto) 4.2, Baso % (Auto) 0.2, Neut # (Auto) 7.2, Lymph # (Auto) 1.0, [place] # (Auto) 0.5, Eos # (Auto) 0.4, Baso # (Auto) 0.0, ESR 102 H, Sodium 134 L, Potassium 3.8, Chloride 104, Carbon Dioxide 24, Anion Gap 9.8, BUN 20, Creatinine 1.20, Es
[2023-03-28 11:23] LABS: Vancomycin,Trough 14.4 ug/mL (5.0-10.0)
--- NOTE | 2023-03-28 11:26 | HMH.PHAINT1 ---
Pharmacy Intervention Comments: PATIENT'S DISCHARGE MEDICATIONS DISCUSSED WITH PATIENT AND PATIENT'S : -ACETAMINOPHEN 325MG (TAKE FOR LOW TO MODERATE PAIN, TAKE WITH FOOD AND WATER) - HYDROCODONE/ACETAMINOPHEN (TAKE FOR MODERATE TO SEVERE PAIN, MAY CAUSE CONSTIPATION) -LEVOFLOXACIN (ANTIBIOTIC, TAKE UNTIL COMPLETED, MAY CAUSE NAUSEA, TAKE WITH FOOD) - LINEZOLID (ANTIBIOTIC, TAKE UNTIL COMPLETED, MAY CAUSE NAUSEA, TAKE WITH FOOD) NO FURTHER QUESTIONS AT THIS TIME. -ALBANIA COPE, PHARM STUDENT
--- NOTE | 2023-03-28 11:30 | HMH.PTEV ---
Physical Therapy Evaluation Rehab PT IP Evaluation Start: 03/28/23 07:44 Freq: ONCE Status: Active Protocol: Document 03/28/23 11:25 [facility] (Rec: 03/28/23 11:29 [facility]OR[facility] [id number]) Subjective/History History History 67 yowm adm to [facility] with R LE cellulitis, now S/P R foot I&D with flap performed by podiatry. He reports he lives with significant other, no steps to enter the home, and he is generally independent with all mobility at baseline without AD. He does have RW, BSC, and WKS at home if needed . Subjective Subjective Pt has no c/o this am, agrees to mobility assessment. Rehab PT IP Eval Objective Appearance Patient Behavior Appropriate Patient Orientation Person,Place,Time Difficulty following instructions none Speech Pattern Clear Ambulation Patient Able to Ambulate Yes Ambulation Observation Ambulation Distance (feet) 20 Ambulation Assistive Device Rolling Walker Ambulation Ability Supervision/Stand by Balance Ability to Arise Able, uses arms to help Sitting Balance Steady, safe Standing Balance Steady, wide stance Dynamic Sitting Balance Ability Good Dynamic Standing Balance Ability Fair Transfers Bed Transfer Ability Supervision/Stand by Chair Transfer Ability Supervision/Stand by Sit to Stand Bed Transfer Ability Supervision/Stand by Sit to Stand Chair Transfer Ability Supervision/Stand by ROM All Extremities PT ROM Status WFL Abnormal ROM Comment except R ankle NT MMT All Extremities PT MMT WFL Abnormal MMT Grade except R ankle NT Rehab PT IP prob,goals,plan Problems Date of Evaluation: 03/28/23 Discharge Plan PT Discharge Plan Pt able to maintain NWB of the R LE with RW and no difficulty at this time. He is appropriate to return home once medically stable for D/C. Pt was fit with short cam walker for the R LE per MD orders. G -code Required No Eval Complexity Eval Charge Codes 22290 - High Complexity PHYSICIAN CERTIFICATION: I certify the specified therapy services for Ruel Durham are required, authorized,
[2023-03-28 11:44] VITALS: BP 109/61; PULSE 73; RESP 18; TEMP 37.3; O2SAT 96
--- NOTE | 2023-03-29 12:01 | CARE MANAGER ---
Contactacted patient related to hospital discharge. He was able to get all of his medications and he is aware o is follow up appointments. Denies questions or concerns. PORTER Paml
[2023-04-01 08:16] VITALS: BP 166/92; PULSE 80; TEMP 36.6
--- NOTE | 2023-04-01 08:16 | EXP.ANES.II ---
[facility] Anesthesia Record Part II Anesthesia Record Part II Discharge Time: 17:15 Destination: Surgical Day Care (OP Surgery) PACU nurse assessment reviewed?: Yes Patient Condition:: Good Anesthesia Complications:: None Swallowing reflex intact?: Yes Cyanosis?: No Blood Pressure: 166/92 Pulse Rate: 80 Temperature: 98 F Mental Status: Alert & Oriented Pain level:: 0 Nausea and/or vomitting:: None Intake, IV Amount: 0
== END 2023-03-28 12:34 | disposition home or self-care (01) ==
LOC: ER 17:24 → 2ND 19:49
PROVIDERS: Nurse Practitioner Critical Care Medicine; Podiatrist; Admitting Provider Internal Medicine Adolescent Medicine; Emergency Provider Emergency Medicine; PCP Internal Medicine Adolescent Medicine; Visit Provider Internal Medicine Adolescent Medicine
PROC: (CPT 11426; principal; 2023-03-27 13:15)
DX: L03.115 Cellulitis of right lower limb (principal); L02.611 Cutaneous abscess of right foot; Z89.422 Acquired absence of other left toe(s); Z89.421 Acquired absence of other right toe(s); L90.5 Scar conditions and fibrosis of skin; M79.5 Residual foreign body in soft tissue; D17.39 Benign lipomatous neoplasm of skin and subcutaneous tissue of other sites
CPT/HCPCS: 11426; 14301; 14302; G0378; 36415; 73610; 73630; 73700; 80048; 80053; 80202; 83605; 84145; 85007; 85025; 85651; 86140; 87070; 87075; 87205; 87430; 87636; 88300; 88305; 93005; 97163; 97165; 99285; C9803; J2543; J3370; U0003; U0005

== ENCOUNTER → 2023-04-09 09:39 | Outpatient (CLI) | payer MEDICARE, SELFPAY ==
[2023-04-09 10:22] LABS: Basophils # 0.1 K/mm3 (0-0.2); Basophils % 0.7 % (0.1-2.0); Eosinophils # 0.3 K/mm3 (0.0-0.4); Eosinophils % 4.6 % (0.1-12.0); Hematocrit 41.2 % (42.0-52.0); Hemoglobin 13.3 g/dL (14.1-18.0); Lymphocytes # 1.5 K/mm3 (0.7-4.5); Lymphocytes % 22.5 % (10-50); Mean Corpuscular HGB Conc 32.3 g/dL (31.8-35.4); Mean Corpuscular Hemoglobin 30.6 pg (27.0-31.2); Mean Corpuscular Volume 94.6 fl (80-94); Mean Platelet Volume 7.7 fl (7.4-10.4); Monocytes # 0.4 K/mm3 (0.1-1.0); Monocytes % 6.2 % (1.7-9.3); Neutrophils # 4.3 K/mm3 (1.8-7.8); Platelet Count 309 K/mm3 (142-424); Red Blood Count 4.35 M/mm3 (4.60-6.20); Red Cell Distribution Width 14.4 % (11.5-17.5); White Blood Count 6.5 K/mm3 (4.8-10.8)
[2023-04-09 10:46] LABS: Alanine Aminotransferase 26 U/L (12-78); Albumin Level 3.9 g/dl (3.5-5.0); Albumin/Globulin Ratio 1.3 (1.1-1.8); Alkaline Phosphatase 107 U/L (38-126); Anion Gap 9.8 mEq/L (5-15); Aspartate Amino Transferase 26 U/L (17-59); Bilirubin,Total 0.4 mg/dl (0.2-1.3); Blood Urea Nitrogen 18 mg/dl (9-20); Calcium 8.8 mg/dl (8.4-10.2); Carbon Dioxide 27 mmol/L (22.0-30.0); Chloride 106 mmol/L (98-107); Estimated Glomerular Filt Rate 67 ml/min (>60); GFR (African American) 81 ML/MIN (>60); Globulin 2.9 g/dL (1.3-3.2); Glucose 129 mg/dl (74-100); Potassium 4.8 mmoL/L (3.5-5.1); Sodium 138 mmol/L (136-145); Total Protein,Serum 6.8 g/dl (6.3-8.2)
[2023-04-09 10:51] LABS: C-Reactive Protein 8.1 mg/L (0-4)
[2023-04-09 11:16] LABS: Erythrocyte Sedimentation Rate 80 mm/hr (0-20)
== END ==
PROVIDERS: PCP Internal Medicine Adolescent Medicine; Visit Provider Podiatrist
DX: L03.115 Cellulitis of right lower limb (principal); M79.89 Other specified soft tissue disorders; Z89.439 Acquired absence of unspecified foot
CPT/HCPCS: 36415; 80053; 85025; 85651; 86140

== ENCOUNTER 2023-06-13 14:00 | Outpatient (RCR) | payer MEDICARE, OTHER, SELFPAY ==
--- NOTE | 2023-05-08 16:34 | HMH.PTOPWND ---
Rehab Outpt Wound Evaluation Rehab OP Wound Evaluation Start: 05/08/23 16:13 Freq: Status: Active Protocol: Document 05/08/23 16:20 [facility]AYL[facility] (Rec: 05/08/23 16:34 PHOSWATI [id number]) E-signed By Karson Sales, PT Subjective/History History History This is the initial PT eval for Ruel Durham, 67 yowf who presents with R distal foot wound x ~ 1 mo after surgery due to cellulitis in the R LE. He had a small foreign object removed and a de-bulking procedure due to large amts of excess tissue after a prior tissue flap surgery. He had a significant injury in 2016 resulting in B toe amputations and several surgeries. 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 Subjective Subjective Currently no c/o pain and no tednerness. Minimal erythema noted in the jose-wound skin. Wound Eval Wound Right Distal Foot Wound Type Incision Is This a Chronic Wound Yes Wound Length (cm) 6.4 Wound Width (cm) 5.0 Wound Depth (cm) 0.1 Wound Bed Appearance Beefy Red,Yellow Percentage Granulated (%) 10 Percentage of Slough (%) 90 Wound Margins Description Well Defined Surrounding Tissue Appearance [place] Edema Type Pitting Drainage Description Serosanguineous Drainage Amount Small Primary Dressing Silver Dressing Comment tegaderm Ag mesh Wound Secondary Dressing Type Composite Comment polymem Wound Debridement Method Sharps,Forceps,Gauze Wound Debridement Amount of Tissue Minimal Removed Dressing Change Patient Tolerance Tolerated Well Wound Problems/Impairments Impairments Problems/Impairmments Impaired Walking,Impaired Standing,Impaired Recreational Activities,Increased Edema, Lymphedema Present,Wound Care Needs,Impaired Self Care/Self Management Prognosis Rehab Potential Good Clinical Impression Consistent with Diagnosis Yes Short Term Goals Number of Weeks 2 Decrease Wound Area Yes: by 25% Decrease Yellow/White [place] % Yes: by 100% Health Information Administrator Goals Number of Weeks 4 Increase Ability to Walk Yes: > 15 min without pain. Decrease Lymphedema Yes Decrease Wound Area Yes: by 75% Patient to be Ind w/ HEP Yes Patient to be Ind w/ Home Wound Care/ Yes Dressing Changes Outpatient Therapy Plan of Care Treatment Plan May Include Therapeutic Exercise Including Home Yes Exercise Program Manual Therapy Techniques Yes Neuromuscular Re-education Yes Therapeutic Activities to Return to Yes Previous Functional/Work Level Gait Training Yes ADL/Self Care Education Yes Orthotics/Bracing/Splinting Yes Manual Lymphatic Drainage Yes Wound Care Yes Eval/Re-Eval Yes Frequency Times per week 1-2 Duration Number of Weeks 4 Addendums This patient is a candidate for social No or vocational rehab? Patient/Guardian verbally acknowledges Yes understanding of treatment program and consents to further treatment? Patient/Guardian verbally acknowledges Yes understanding of diagnosis, prognosis and goals for treatment? G -code Required No Eval Complexity PT Charges 14909 - High Complexity PHYSICIAN CERTIFICATION: I certify the specified therapy services for Ruel Durham are required, authorized, and reviewed every 30 days.
--- NOTE | 2023-06-07 15:36 | HMH.RHREAS ---
Rehab Reassessment Rehab OP Re-assessment Start: 05/08/23 16:13 Freq: Status: Active Protocol: Document 06/07/23 15:30 PHOKaidenRYLEE (Rec: 06/07/23 15:35 PHORNE [id number]) E-signed By Karson Sales, PT Rehab Re-assessment Subjective Subjective Pt reports less pain overall and he feels good about his wound healing. He does reports more WB'ing than recommended because I've got to do stuff with my tractor. Objective Objective Notes R distal foot wound: L= 3.8 cm , W= 0.4 cm, D= 0.1 cm. Wound surface area 95% decreased from initial eval. Assessment Progress Assessment Progressing as Expected Assessment Notes Pt has shown significant improvement in R fodt wound overall area at this time. He continues to have mild difficulty with ambulation and recreational activity due to R foot pain. He continues to need skilled intervention to return to prior level of function. Patient goals met ST,2 LT Goals Not Met LT,2,4,5 Revised Goals LTG: #6 Decerease wound surface area by 100%. Plan Plan Continue per initial POC Frequency of Therapy 2 x/wk Duration of therapy 4 wks Time and Billing Re-Eval Time 13 Re-Eval Billing Units 1 PHYSICIAN CERTIFICATION: I certify the specified therapy services for Ruel Durham are required, authorized, and reviewed every 30 days.
== END 2023-06-13 15:30 | disposition home or self-care (01) ==
LOC: PT 14:00
PROVIDERS: PCP Internal Medicine Adolescent Medicine; Visit Provider Podiatrist
DX: L03.115 Cellulitis of right lower limb; S91.301A Unspecified open wound, right foot, initial encounter; Z89.421 Acquired absence of other right toe(s); Z89.422 Acquired absence of other left toe(s)
CPT/HCPCS: 97163; 97164; 97597

== ENCOUNTER 2024-02-03 09:45 | Outpatient (CLI) | payer MEDICARE, OTHER, SELFPAY ==
[2024-02-03 10:39] LABS: Hemoglobin A1C 5.8 % (4.0-6.0)
[2024-02-03 11:15] LABS: Alanine Aminotransferase 22 U/L (12-78); Albumin Level 3.8 g/dl (3.5-5.0); Albumin/Globulin Ratio 1.5 (1.1-1.8); Alkaline Phosphatase 78 U/L (38-126); Anion Gap 7.6 mEq/L (5-15); Aspartate Amino Transferase 24 U/L (17-59); Bilirubin,Total 0.5 mg/dl (0.2-1.3); Blood Urea Nitrogen 16 mg/dl (9-20); Carbon Dioxide 29 mmol/L (22.0-30.0); Chloride 108 mmol/L (98-107); Chol/HDL Ratio 5.6 (1-3.5); Cholesterol 150 mg/dl (140-200); Estimated Glomerular Filt Rate 66 ml/min (>60); GFR (African American) 80 ML/MIN (>60); Globulin 2.5 g/dL (1.3-3.2); Glucose 118 mg/dl (74-100); HDL Cholesterol 27 mg/dl (40-60); Potassium 4.6 mmoL/L (3.5-5.1); Sodium 140 mmol/L (136-145); Total Protein,Serum 6.3 g/dl (6.3-8.2); Triglycerides 139 mg/dl (30-150); VLDL Cholesterol 28 mg/dL (0-40)
[2024-02-03 11:26] LABS: Direct LDL Cholesterol 104.69 mg/dL (100-129)
== END 2024-02-03 23:59 | disposition home or self-care (01) ==
LOC: LAB 09:47
PROVIDERS: PCP Internal Medicine Adolescent Medicine; Visit Provider Internal Medicine Adolescent Medicine
DX: E11.69 Type 2 diabetes mellitus with other specified complication (principal); E78.5 Hyperlipidemia, unspecified
CPT/HCPCS: 36415; 80053; 80061; 83036

== ENCOUNTER 2024-02-04 12:53 | Outpatient (CLI) | payer MEDICARE, OTHER, SELFPAY ==
--- NOTE | 2024-02-04 12:59 | XR_ITS ---
FINAL REPORT CLINICAL HISTORY: foot pain COMPARISON: None FINDINGS: RIGHT FOOT: Three views of the right foot were obtained. There are postoperative changes from amputation of the first and second digits. There is no acute fracture or dislocation. There is mild degenerative change. Calcaneal spurs are noted. There is no soft tissue abnormality. IMPRESSION: Postoperative and degenerative changes without acute bony abnormality. Reviewed, Interpreted and Dictated by Valerio Owens III, MD Transcribed by Xena Rod Authenticated and [facility]
== END 2024-02-04 23:59 | disposition home or self-care (01) ==
LOC: RAD 12:53
PROVIDERS: PCP Internal Medicine Adolescent Medicine; Visit Provider Nurse Practitioner
DX: M79.671 Pain in right foot; S91.301D Unspecified open wound, right foot, subsequent encounter
CPT/HCPCS: 73630

== ENCOUNTER 2025-08-03 07:26 | Day surgery (SDC) | payer MEDICARE, OTHER, SELFPAY ==
[2025-08-02 14:18] VITALS: BMI 35.9
[2025-08-03 07:54] VITALS: BP 127/73; PULSE 70; RESP 18; TEMP 36.5; O2SAT 96
[2025-08-03] MEDS: LACTATED RINGERS 1000ML 1,000 ML 50 ML IV (08:06)
--- NOTE | 2025-08-03 08:10 | P.PNANES_ITS ---
[facility] Disclaimer: The information contained in this section may have been updated after the patient was seen, as this information can be updated by other users. Medical History Hx of skin cancer, basal cell Sleep apnea Amputation at midfoot No significant past medical history Surgical History Hx of amputation of foot Hx of removal of cyst Family History Other No significant family history Social History Smoking Status: Never smoker second hand exposure: No alcohol intake: never substance use type: denies use current occupational status: employed Travel in the last 8 weeks?: None household members: spouse housing: house current occupation: [email or web address] current occupational exposures/hazards: No caffeine: Yes Have you lived/traveled outside [place] in past 30 days?: No Contact w/someone who lives/traveled outside [place] past 30 days?: No Exposure to someone with infectious disease in past 14 days?: No Do you have a fever (greater than 100.4 F or 38 C)?: No Have you tested positive for COVID-19?: No Exposed to someone with COVID-19 in past 14 days?: No Do you have a sore throat?: No Do you have a cough?: No Do you have any weakness?: No Do you have any diarrhea?: No Are you experiencing any unusual bleeding?: No Do you have any muscle aches/pain?: No Do you have any abdominal pain?: No Are you experiencing loss of taste or smell?: No [facility] Anesthesia Checklist Patient Identification Patient Identification: Arm Band and Verbal (Name & ) Structural Data Admitted From: Home Planned Operative Procedure/s: colonscopy Consent for Planned Operative Procedure(s) Verified: Yes Verified Documents: Surgical Consent and History and Physical NPO Status Verified Time NPO: 00:00 Additional verifications Anesthesia Reactions: No Hx Blood Transfusions: No Blood Transfusion Reaction: No Previous Colonoscopy: Yes Airway Assessment Mallampati Score:: Class II Dentition: Good Dentition Neurological Assessment Level of Consciousness: Awake, Alert and Appropriate Hx Seizures: No Numbness or tingling in extremities: No Anesthesia Plan Anesthesia Risk discussed: Yes Anesthesia Plan: Verified ASA Class: II Anesthesia Type: MAC
--- NOTE | 2025-08-03 08:18 | P.HP_ITS ---
HPI HPI HPI: This is a 70-year-old gentleman who reports for repeat colonoscopy. His most recent colonoscopy was in July 2022 at which time he had a moderate bowel preparation, hemorrhoids, somewhat enlarged prostate, and fairly profound spasticity/lack of relaxation. An adenomatous complex lobulated polyp at 70 cm was excised. [facility] Disclaimer: The information contained in this section may have been updated after the patient was seen, as this information can be updated by other users. Medical History Hx of skin cancer, basal cell Sleep apnea Amputation at midfoot No significant past medical history Surgical History Hx of amputation of foot Hx of removal of cyst Family History Other No significant family history Social History Smoking Status: Never smoker second hand exposure: No alcohol intake: never substance use type: denies use current occupational status: employed Travel in the last 8 weeks?: None household members: spouse housing: house current occupation: [employer] current occupational exposures/hazards: No caffeine: Yes Have you lived/traveled outside [place] in past 30 days?: No Contact w/someone who lives/traveled outside [place] past 30 days?: No Exposure to someone with infectious disease in past 14 days?: No Do you have a fever (greater than 100.4 F or 38 C)?: No Have you tested positive for COVID-19?: No Exposed to someone with COVID-19 in past 14 days?: No Do you have a sore throat?: No Do you have a cough?: No Do you have any weakness?: No Do you have any diarrhea?: No Are you experiencing any unusual bleeding?: No Do you have any muscle aches/pain?: No Do you have any abdominal pain?: No Are you experiencing loss of taste or smell?: No Other Medical History Have you received the Flu Vaccine for this season: No Have you received the Pneumonia Vaccine: Yes Review of Systems Review of Systems Review of systems:: pertinent systems reviewed and negative unless documented below Meds Home Medications and Allergies Home Medications ?Medication ?Instructions ?Recorded ?Confirmed ?Type tamsulosin 0.4 mg capsule 0.4 mg PO DAILY 11/18/2301/22 History multivitamin 1 tab PO DAILY 02/04/2401/22 History New Prescriptions to Start Prescriptions: Allergies Allergy/AdvReac Type Severity Reaction Status Date / Time No Known Allergies Allergy Verified 08/03/25 07:50 Exam Data for Last 24 hours Vital signs and Labs for Last 24 Hours: Temp Pulse Resp BP Pulse Ox O2 Del Method 97.7 F 70 18 127/73 96 Room Air 08/03/25 07:54 08/03/25 07:54 08/03/25 07:54 08/03/25 07:54 08/03/25 07:54 08/03/25 07:54 I & O for Last 24 hours: Intake & Output 07/31/25 08/01/25 08/02/25 08/03/25 11:59 10:59 11:59 11:59 Weight 265 lb Constitutional Constitutional: no acute distress *Routine HEENT Exam Head: Present normocephalic Eye: Present EOMI ENT: Present mucous membranes moist *Routine Neck Exam Neck: Present full ROM *Routine Respiratory Exam Respiratory: Absent respiratory distress *Routine Cardiovascular Exam Cardiovascular: Absent tachycardia *Routine Abdominal Exam Abdominal: Present soft *Routine Rectal Exam Rectal:: deferred *Routine Genitalia Exam Genitalia:: deferred *Routine Extremities Exam Extremities: Present full ROM *Routine Skin Exam Skin: Absent erythema *Routine Neurological Exam Neurological: Present alert Assessment and Plan *Assessment and plan (1) History of colon polyps: Status: Acute Category: Medical Code(s): Z86.0100 - Personal history of colon polyps, unspecified Plan: Colonoscopy today I have discussed the risks and benefits including, but not limited to: Bleeding Infection Damage to surrounding tissue Inherent risks of sedation The patient agrees to proceed.
--- NOTE | 2025-08-03 08:20 | P.PCN_ITS ---
Procedure: Date: 08/03/25 Patient Date of :: 1955 Procedure Performed:: Colonoscopy Indications:: History of colon polyps Note: His most recent colonoscopy was in July 2022 at which time he had a mo derate bowel preparation, hemorrhoids, a somewhat enlarged prostate, and fairly profound spasticity/lack of relaxation. An adenomatous complex lobulated polyp at 70 cm was excised. Performing Provider:: Todd Ambrose MD Referring Provider:: . Sedation:: Monitored anesthesia care Procedure:: After informed consent was obtained the patient was taken to the endoscopy suite. Sedation ensued after the patient was transferred to the left lateral decubitus position. Pulse, blood pressure, and oxygen saturation were monitored throughout the procedure. Digital rectal exam revealed no significant ab normality. The colonoscope was placed in position. The entire colon was evaluated. The colonoscope was carefully removed and the patient was transferred to recovery in stable condition. Please see findings and specimens below for detail. Findings:: Bowel preparation moderate Unchanged hemorrhoids Somewhat enlarged/smooth prostate with no definitive mass lesion Fairly significant spasticity/lack of relaxation Specimens:: None Recommendations:: Repeat colonoscopy in 3-5 years Complications:: No immediate Estimated blood obtained (mL): 0 Colonoscopy Component Colonoscopy Component Was a colonoscopy performed during today's procedure?: Yes Recommended follow up colonoscopy of at least 10 years?: No If no, follow up colonoscopy recommended in ___ years?: (See above) Reason for not recommending >/= 10 yr follow-up interval?: (See above)
[2025-08-03 08:57] VITALS: BP 88/56; PULSE 81; RESP 18; TEMP 36.5; O2SAT 92
[2025-08-03 09:07] VITALS: BP 97/57; PULSE 76; RESP 18; TEMP 36.5; O2SAT 95
[2025-08-03 09:17] VITALS: BP 107/54; PULSE 75; RESP 18; TEMP 36.5; O2SAT 95
[2025-08-03 09:27] VITALS: BP 118/73; PULSE 74; RESP 18; TEMP 36.5; O2SAT 97
== END 2025-08-03 09:34 | disposition home or self-care (01) ==
PROVIDERS: PCP Internal Medicine Adolescent Medicine; Visit Provider Surgery
PROC: 0DJD8ZZ Inspection of Lower Intestinal Tract, Via Natural or Artificial Opening Endoscopic (ICD-10-PCS; CPT 45378; principal; 2025-08-03 08:15)
DX: K64.9 Unspecified hemorrhoids (principal); N40.0 Benign prostatic hyperplasia without lower urinary tract symptoms; Z86.0101 Personal history of adenomatous and serrated colon polyps
CPT/HCPCS: 45378; J2003; J2704; J7120